=== PATIENT | male | born 1965 | race Two or more races ===

== ENCOUNTER 2020-02-21 09:31 | Outpatient (REF) | payer MEDICAID, SELFPAY ==
--- NOTE | 2020-02-21 09:30 | EMG_ITS ---
Bilateral tibial and peroneal motor studies were performed. Bilateral sural and superficial peroneal sensory studies were performed. Tibial H reflexes were obtained and paraspinal muscles were tested. IMPRESSION: This study did not reveal any significant abnormality to suggest radiculopathy or peripheral neuropathy. MD JAD Lancaster/AMADEO / [id number]
== END 2020-02-21 09:32 | disposition home or self-care (01) ==
LOC: HO.NEURO 09:31
PROVIDERS: Visit Provider Family Medicine
DX: M54.5 Low back pain (principal); M62.81 Muscle weakness (generalized)
CPT/HCPCS: 95860; 95861; 95911

== ENCOUNTER 2020-04-23 11:14 | Outpatient (REF) | payer MEDICAID, SELFPAY | END 2020-04-23 11:15 | disposition home or self-care (01) | LOC: HO.LAB 11:14 | PROVIDERS: PCP Family Medicine; Visit Provider Internal Medicine | DX: Z20.822 Contact with and (suspected) exposure to COVID-19 (principal) | CPT/HCPCS: 36415; C9803; U0003 ==

== ENCOUNTER 2020-07-05 13:26 | Emergency (ER) | payer OTHER, SELFPAY ==
[2020-07-05 13:31] VITALS: BP 142/78; PULSE 74
[2020-07-05 13:37] VITALS: BP 130/65; PULSE 86; RESP 17; TEMP 37.4; O2SAT 95; BMI 26.6
--- NOTE | 2020-07-05 13:47 | ED.GENADULT ---
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 He told me he was in the bathroom changing the trash and then felt a poking sensation on his finger. Tells me he saw the needle which was uncapped and he noticed his finger was bleeding. Related Data Allergies Allergy/AdvReac Type Severity Reaction Status Date / Time No Known Allergies Allergy Verified 07/05/20 13:40 Review of Systems Review of Systems: Yes all other systems are reviewed and are negative Constitutional: Constitutional: Reports no additional constitutional complaints, Denies body ache(s), Denies chills, Denies fever(s), Denies headache(s) and Denies weakness Eyes: Eyes: Reports no additional eye complaints and Denies change in vision ENT: Reports system reviewed and no additional complaints, except as documented, Denies dizziness, Denies headache(s), Denies nasal congestion, Denies nasal discharge and Denies neck pain Cardiovascular: Cardiovascular: Reports no additional cardiovascular complaints, Denies chest pain, Denies leg edema and Denies dyspnea Respiratory: Respiratory: Reports no additional respiratory complaints, Denies cough and Denies dyspnea Gastrointestinal: Gastrointestinal: Reports no additional gastrointestinal complaints, Denies abdominal pain, Denies diarrhea, Denies nausea and Denies vomiting Genitourinary: Genitourinary: Denies urinary incontinence Musculoskeletal: Musculoskeletal: Reports no additional musculoskeletal complaints, Denies back pain, Denies arthralgias, Denies joint swelling, Denies neck pain, Denies numbness and Denies tingling Integumentary/Breasts: Skin/Breast: Reports system reviewed and no additional complaints, except as docu and Denies rash Neurologic: Reports system reviewed and no additional complaints, except as documented, Denies Abnormal speech present, Denies dizziness, Denies headache(s), Denies numbness, Denies tingling and Denies weakness PMFSH Past Medical History Attestation statement: The following information was validated with the patient. Source: old records reviewed and nursing notes reviewed Medical History No known health problems Social History Social History Advance Directives: No Advance Directives Information Provided: Yes Physical Exam Vital Signs: Vital Signs: Last Vital Signs Temp 99.3 F 07/05/20 13:37 Pulse 86 07/05/20 13:37 Resp 17 07/05/20 13:37 BP 130/65 07/05/20 13:37 Pulse Ox 95 07/05/20 13:37 Body Mass Index 26.6 Const: General: cooperative, healthy appearing, comfortable and no acute distress Orientation/consciousness: patient oriented x3 Limitations: no limitations HENMT: Head: Yes normal to inspection Ears: hearing grossly normal bilaterally General nose exam: Normal external nose present Face and sinus: Yes normal facial exam Mouth: Normal oral and palatal mucosa present Throat: Yes posterior oropharynx normal Eyes: General: appearance normal, both eyes and all related structures Pupils: Equal, round and reactive pupils present Neck: Neck: Yes normal visual inspection Chest: Chest palpation & inspection: normal inspection of the chest Resp: Effort & Inspection: normal respiratory effort Auscultation: clear to auscultation bilaterally Cardio: Rate: regular rate Rhythm: regular rhythm Peripheral pulses: Peripheral pulses 2+ throughout GI: Inspection: Yes normal to inspection Palpation (GI): Soft to palpation and nontender Auscultation: normal bowel sounds Back/Spine/Pelvis: Thoracic/Lumbar Spine: thoracic and lumbar spine normal to inspection Skin: General skin exam: no rashes or lesions noted Neuro: General: patient oriented x3, no focal motor deficits and normal sensation to monofilament Cranial nerves: Yes Equal, round and reactive pupils present Cognition (Neuro): normal cognition Speech: No Abnormal speech present Gait exam (Neuro): Normal gait present Motor exam (neuro): 5/5 motor strength present throughout Extrem: Other: Right hand, distal 4th finger on the volar aspect there is a puncture site noted with no active bleeding. General: Yes normal to inspection Course Course Course Narrative: Accidental needlestick to the 4th finger on the right hand just prior to arrival while working. Will need labs including hepatitis and HIV status. Tetanus updated. 1415-unfortunately the patient is unaware of his hepatitis-B status. He is also unaware of his tetanus status. He received his 2nd COVID vaccine 1 week ago and per pharmacy he is unable to receive a secondary vaccination for another 7 days. He will be referred to [facility] to follow-up on Tuesday. I did explain to him that he can receive his vaccinations after 7 days and he will follow-up in regard to this with [facility]. 1510-Patient given PEP kit for 72 hrs. Reviewed worrisome signs and symptoms of when to return to the emergency department. Comfortable discharge home. Medical Decision Making Medical Records Medical records reviewed: Yes I reviewed the patient's medical records. Lab Data Lab results reviewed: Yes I reviewed the patient's lab results. Result diagrams: 07/05/20 13:58 07/05/20 13:58 Labs: Lab Results 07/05/20 07/05/20 Range/Units 13:58 13:58 WBC 6.7 (4.8-10.8) X10*3/uL RBC 5.08 (4.60-5.80) X10*6/uL Hgb 14.7 (14.0-18.0) g/dl Hct 44.3 (42-52) % MCV 87.2 (80-98) fL MCH 28.9 (27.0-33.0) pg MCHC 33.2 (31.0-36.0) g/dl RDW 13.2 (11.0-16.0) % Plt Count 171 (160-400) X10*3/uL MPV 9.6 (9.4-12.4) fL Immature Gran % (Auto) 0.1 (0.0-0.4) % Neut % (Auto) 81.5 H (45-73) % Lymph % (Auto) 8.5 L (20-40) % Sanders % (Auto) 8.5 (2-11) % Eos % (Auto) 0.7 (0-4) % Baso % (Auto) 0.7 (0-2) % Lymph # (Auto) 0.6 L (1.2-4.9) X10*3/uL Sanders # (Auto) 0.6 (0.1-1.2) X10*3/uL Eos # (Auto) 0.1 (0.0-0.4) X10*3/uL Baso # (Auto) 0.1 (0.0-0.2) X10*3/uL Abs Immat Gran (auto) 0.01 (0.00-0.03) X10*3/uL Absolute Neuts (auto) 5.5 (2.0-8.3) X10*3/uL Absolute Nucleated RBC 0.000 (0.0-0.012) X10*3/uL Nucleated RBC % (auto) 0.0 (0.0-0.2) /100WBC Smear Tech's Comments VERIFIED Sodium 135 (135-145) mmol/L Potassium 3.7 (3.3-5.1) mmol/L Chloride 102 (96-108) mmol/L Carbon Dioxide 25 (22-29) mmol/L Anion Gap 12 (12-20) BUN 23 H (9-16) mg/dL Creatinine 1.33 (0.5-1.4) mg/dL Estim Creat Clear Calc 55.9 Estimated GFR 56 Random Glucose 132 H (60-115) mg/dL Calcium 8.4 (8.4-10.2) mg/dL Total Bilirubin 1.2 H (0.0-1.0) mg/dL Direct Bilirubin 0.4 (0.0-0.5) mg/dL AST 23 (5-37) U/L ALT 22 (0-40) U/L Alkaline Phosphatase 71 (39-117) U/L Total Protein 7.0 (6.5-8.0) g/dL Albumin 4.1 (3.5-5.0) g/dL Discharge Plan Discharge Clinical Impression: Accidental hypodermic needlestick injury Patient Disposition: Home, Self-Care Instructions: Postexposure Prophylaxis (ED) Additional Instructions: We have given you 3 day supply of your post exposure medications. You will need to take these for 30 days and so on Tuesday you need to call [facility] for follow-up appointment. Their number is [phone]. Call them on Tuesday. You received a COVID vaccine 7 days ago. According to our pharmacy cannot receive another vaccine for 7 more days. We would like to give you a tetanus vaccine and or a hepatitis-B vaccine. Discussed this with [facility] next week. Take the medications as prescribed in the kit until Tuesday Referrals: Marlys Minor DO [Primary Care Provider] - 2 days Interventions: ED Discharge Assessment Last Done: 07/05/20 15:09 Discharge Date/Time: 07/05/20 15:10 Print Language: Lithuanian
[2020-07-05 14:10] LABS: Basophils Absolute Auto 0.1 X10*3/uL (0.0-0.2); Basophils Percent Auto 0.7 % (0-2); Eosinophils Absolute Auto 0.1 X10*3/uL (0.0-0.4); Eosinophils Percent Auto 0.7 % (0-4); Hematocrit 44.3 % (42-52); Hemoglobin 14.7 g/dl (14.0-18.0); Imm Gran Abs Auto 0.01 X10*3/uL (0.00-0.03); Imm Gran Pct Auto 0.1 % (0.0-0.4); Lymphocytes Absolute Auto 0.6 X10*3/uL (1.2-4.9); Lymphocytes Percent Auto 8.5 % (20-40); MANUAL DIFF FLAG SCAN; Mean Corpuscular HGB Conc 33.2 g/dl (31.0-36.0); Mean Corpuscular Hemoglobin 28.9 pg (27.0-33.0); Mean Corpuscular Volume 87.2 fL (80-98); Mean Platelet Volume 9.6 fL (9.4-12.4); Monocytes Absolute Auto 0.6 X10*3/uL (0.1-1.2); Monocytes Percent Auto 8.5 % (2-11); Neutrophils Absolute Auto 5.5 X10*3/uL (2.0-8.3); Neutrophils Percent Auto 81.5 % (45-73); Platelet Count 171 X10*3/uL (160-400); Red Blood Count 5.08 X10*6/uL (4.60-5.80); Red Cell Distribution Width 13.2 % (11.0-16.0); SCAN SMEAR FLAG 1; White Blood Count 6.7 X10*3/uL (4.8-10.8)
[2020-07-05 14:34] LABS: SLIDE REVIEW VERIFIED
[2020-07-05 14:40] LABS: Alanine Aminotransferase 22 U/L (0-40); Albumin Level 4.1 g/dL (3.5-5.0); Alkaline Phosphatase 71 U/L (39-117); Anion Gap 12 (12-20); Aspartate Amino Transferase 23 U/L (5-37); Bilirubin Direct 0.4 mg/dL (0.0-0.5); Bilirubin Total 1.2 mg/dL (0.0-1.0); Blood Urea Nitrogen 23 mg/dL (9-16); Calcium 8.4 mg/dL (8.4-10.2); Carbon Dioxide 25 mmol/L (22-29); Chloride 102 mmol/L (96-108); Creatinine Clr Calc Pharmacy 55.9; Estimated Glomerular Filt Rate 56; Glucose Random 132 mg/dL (60-115); Potassium 3.7 mmol/L (3.3-5.1); Sodium 135 mmol/L (135-145)
[2020-07-05] MEDS: Post Exposure Medication Kit 1 KIT PO (15:00)
[2020-07-07 03:50] LABS: HBc Num1 0.06 S/CO (0.00-0.79); Hepatitis B Core Antibody Nonreactive (Nonreactive); ~HepC Num1 0.07 S/CO (0.00-0.79); ~Hepatitis B Surface Antibody NONREACTIVE (Nonreactive); ~Hepatitis C Antibody Nonreactive (Nonreactive)
[2020-07-07 04:01] LABS: HBsAGNum1 0.17 S/CO (0.00-0.99); HIV AB/AG Nonreactive (Nonreactive); HIV Num 1 0.08 S/CO (0.00-0.99); Hepatitis B Surface Antigen Negative (Negative)
== END 2020-07-05 15:10 | disposition home or self-care (01) ==
PROVIDERS: Nurse Practitioner Family; Emergency Provider Emergency Medicine; PCP Family Medicine
DX: Z04.2 Encounter for examination and observation following work accident (principal); Z77.21 Contact with and (suspected) exposure to potentially hazardous body fluids
CPT/HCPCS: 36415; 80048; 80076; 85025; 86704; 86706; 86803; 87340; 87389; 90471; 99283; 99285

== ENCOUNTER → 2020-07-11 11:10 | Outpatient (BNVA) | payer OTHER, SELFPAY | PROVIDERS: PCP Family Medicine; Visit Provider Physician Assistant Medical | DX: Z77.21 Contact with and (suspected) exposure to potentially hazardous body fluids (principal) | CPT/HCPCS: 90715; 90746; 99203 ==

== ENCOUNTER → 2020-07-18 10:26 | Outpatient (BNVA) | payer OTHER, SELFPAY | PROVIDERS: PCP Family Medicine; Visit Provider Physician Assistant Medical | DX: Z77.21 Contact with and (suspected) exposure to potentially hazardous body fluids (principal) | CPT/HCPCS: 36415; 80076; 82150; 82565; 85025; 99213 ==

== ENCOUNTER → 2020-08-01 09:19 | Outpatient (BNVA) | payer OTHER, SELFPAY | PROVIDERS: PCP Family Medicine; Visit Provider Physician Assistant Medical | DX: Z77.21 Contact with and (suspected) exposure to potentially hazardous body fluids (principal) | CPT/HCPCS: 36415; 80076; 82150; 82565; 85025; 99213 ==

== ENCOUNTER 2020-08-12 08:03 | Outpatient (REF) | payer MEDICAID, SELFPAY ==
--- NOTE | ~2020-08-12 | XR_ITS ---
EXAMINATION: XR LUMBOSACRAL SPINE CLINICAL INFORMATION: Spondylosis with myelopathy. COMPARISON: None TECHNIQUE: Three views of the lumbosacral spine. FINDINGS: There is normal lumbar lordosis. The vertebral heights and alignment is normal. There is loss of L5-S1 disc height with posterior and ventral spondylosis. Rest of the disc heights are normal. There is no visible acute fracture, dislocation or lytic process seen. The paravertebral soft tissues are normal. XR/XR lumbar spine 2-3V IMPRESSION: Degenerative disc changes L5-S1 disc level with ventral and posterior spondylosis. No visible acute fracture or dislocation seen.
== END 2020-08-12 08:04 | disposition home or self-care (01) ==
LOC: HO.XRAY 08:03
PROVIDERS: PCP Family Medicine; Visit Provider Nurse Practitioner Family
DX: M47.816 Spondylosis without myelopathy or radiculopathy, lumbar region (principal)
CPT/HCPCS: 72100; 99202

== ENCOUNTER → 2020-08-20 08:08 | Outpatient (BNVA) | payer OTHER, SELFPAY | PROVIDERS: PCP Family Medicine | DX: Z77.21 Contact with and (suspected) exposure to potentially hazardous body fluids (principal) | CPT/HCPCS: 36415; 80051; 80076; 82565; 84520; 87389; 90746; 99211 ==

== ENCOUNTER → 2020-08-27 08:12 | Outpatient (BNVA) | payer OTHER, SELFPAY | PROVIDERS: PCP Family Medicine; Visit Provider Nurse Practitioner Family | DX: M47.816 Spondylosis without myelopathy or radiculopathy, lumbar region (principal); R29.898 Other symptoms and signs involving the musculoskeletal system | CPT/HCPCS: 99212 ==

== ENCOUNTER → 2020-10-16 10:53 | Outpatient (BNVA) | payer OTHER, SELFPAY | PROVIDERS: PCP Family Medicine | DX: Z77.21 Contact with and (suspected) exposure to potentially hazardous body fluids (principal) | CPT/HCPCS: 36415; 82247; 84450; 84460; 86803; 87389; 99211 ==

== ENCOUNTER → 2021-02-04 10:02 | Outpatient (BNVA) | payer OTHER, SELFPAY | PROVIDERS: PCP Family Medicine | DX: Z77.21 Contact with and (suspected) exposure to potentially hazardous body fluids (principal) | CPT/HCPCS: 36415; 84450; 84460; 86803; 87389; 90746; 99211 ==

== ENCOUNTER 2021-02-11 13:42 | Outpatient (REF) | payer MEDICAID, SELFPAY ==
--- NOTE | ~2021-02-11 | XR_ITS ---
EXAMINATION: XR HIP, LEFT CLINICAL INFORMATION: Left hip pain. COMPARISON: None TECHNIQUE: Two views of the left hip. FINDINGS: The bony alignments are intact. The cortices are intact. Articular margins, joint space appear unremarkable. Small sub-5 mm radiodensity seen overlying the superolateral aspect of the acetabulum. Otherwise the soft tissues are unremarkable. XR/XR hip LT min 2V IMPRESSION: No radiographic evidence of any osseous or articular abnormality. Note is made of presence of a sub-5 mm radiodensity overlying the superolateral aspect of the acetabulum, may represent labral/ paralabral calcification.
== END 2021-02-11 13:43 | disposition home or self-care (01) ==
LOC: HO.XRAY 13:42
PROVIDERS: PCP Family Medicine; Visit Provider Nurse Practitioner Family
DX: M25.552 Pain in left hip (principal); M47.816 Spondylosis without myelopathy or radiculopathy, lumbar region; M53.3 Sacrococcygeal disorders, not elsewhere classified
CPT/HCPCS: 73502; 99212

== ENCOUNTER → 2021-03-25 07:52 | Outpatient (BNVA) | payer OTHER, SELFPAY | PROVIDERS: PCP Family Medicine | DX: Z77.21 Contact with and (suspected) exposure to potentially hazardous body fluids (principal); Z23 Encounter for immunization | CPT/HCPCS: 36415; 86706; 99211 ==

== ENCOUNTER → 2021-04-16 12:12 | Outpatient (BNVA) | payer OTHER, SELFPAY | PROVIDERS: PCP Family Medicine | DX: Z77.21 Contact with and (suspected) exposure to potentially hazardous body fluids (principal); Z23 Encounter for immunization ==

== ENCOUNTER 2021-05-27 14:00 | Outpatient (RCR) | payer MEDICAID, SELFPAY | END 2021-06-15 16:09 | disposition home or self-care (01) | LOC: HO.PT 14:00 | PROVIDERS: PCP Family Medicine; Visit Provider Family Medicine | DX: M54.50 Low back pain, unspecified (principal) | CPT/HCPCS: 97110; 97140; 97162 ==

== ENCOUNTER → 2021-06-16 07:43 | Outpatient (BNVA) | payer OTHER, SELFPAY | PROVIDERS: PCP Family Medicine | DX: Z77.21 Contact with and (suspected) exposure to potentially hazardous body fluids (principal) | CPT/HCPCS: 36415; 86706; 99211 ==

== ENCOUNTER 2023-01-12 07:33 | Emergency (ER) | payer OTHER, SELFPAY ==
[2023-01-12 07:42] VITALS: BP 124/65; PULSE 67; RESP 16; TEMP 36.3; O2SAT 96; BMI 27.1
--- NOTE | 2023-01-12 07:46 | ED.WOUNDLAC ---
HPI - Wound/Laceration General Chief Complaint: Wound/Laceration Stated Complaint: Head Lac Work Injury 01/12/23 Time Seen by Provider: 01/12/23 07:43 History of Present Illness HPI narrative: Patient is a 57-year-old male works at [employer] Patient hit his head against a metal rail. Subsequently complaining of pain localized to the area. There is no loss of consciousness. There is no nausea no vomiting. Worry about a laceration to the area. Patient from work. Not on blood thinners. Related Data Allergies Allergy/AdvReac Type Severity Reaction Status Date / Time No Known Allergies Allergy Verified 02/11/21 13:51 Review of Systems Review of Systems: No nausea no vomiting no chest pain no shortness breath no diaphoresis Yes all other systems are reviewed and are negative [facility] Past Medical History Attestation statement: The following information was validated with the patient. Medical History No known health problems Social History Social History Advance Directives: No Physical Exam Vital Signs: Vital Signs: Last Vital Signs Temp 97.3 F 01/12/23 07:42 Pulse 67 01/12/23 07:42 Resp 16 01/12/23 07:42 BP 124/65 01/12/23 07:42 Pulse Ox 96 01/12/23 07:42 O2 Del Method Room Air 01/12/23 07:42 BMI result Body Mass Index 27.1 Appearance: Alert. Oriented X3. No acute distress. Very small superficial laceration noted over the occipital area approximately 0.5 cm in size well apposed. Eyes: Pupils equal, round and reactive to light. ENT: Pharynx normal. There is no midface tenderness there is no Warner sign there is no malocclusion noted Neck: Normal inspection. Neck supple. No lymph nodes noted. No crepitus. There is no C-spine tenderness elicited on palpation. CVS: Normal heart rate and rhythm. Pulses normal. Normal S1 and S2 Respiratory: No respiratory distress. Breath sounds normal. No Wheezing. No rales Abdomen: Soft and nontender. No rigidity. No distention. good BS x4 Skin: Skin warm and dry. Normal skin color. Normal skin turgor. Extremities: No lower extremity edema. Neurovascular intact to all extremities. No Lacerations. No Rash Neuro: Oriented X 3. No motor deficit. No sensory deficit. Moving all extermities. No slurred speech Medical Decision Making Medical Decision Making MDM Narrative: Well-appearing there is no loss of consciousness. No nausea no vomiting. No focal weakness. The laceration is well apposed is less than 1 cm in size the wound will be cleaned. Patient to be discharged home. Reeders that this time patient does not need a CT scan of the head. His tetanus shot is up-to-date. Differential Diagnosis Head injury intracranial bleed External Record Review Outpatient office record reviewed Discharge Plan Discharge Clinical Impression: Head injury Patient Disposition: Home, Self-Care Instructions: Head Injury (ED) Referrals: Marlys Minor DO [Primary Care Provider] - 01/14/23 Print Language: Turkmen
== END 2023-01-12 08:13 | disposition home or self-care (01) ==
PROVIDERS: Emergency Provider Emergency Medicine Emergency Medical Services; PCP Family Medicine
DX: S01.01XA Laceration without foreign body of scalp, initial encounter (principal); W26.9XXA Contact with unspecified sharp object(s), initial encounter; Y93.9 Activity, unspecified; Y92.9 Unspecified place or not applicable; Y99.0 Civilian activity done for income or pay
CPT/HCPCS: 99282

== ENCOUNTER 2024-01-24 10:21 | Outpatient (REF) | payer OTHER, SELFPAY ==
[2024-01-24 11:11] LABS: MANUAL DIFF FLAG NO
[2024-01-24 11:39] LABS: Basophils Absolute Auto 0.1 X10*3/uL (0.0-0.2); Basophils Percent Auto 1.2 % (0-2); Eosinophils Absolute Auto 0.4 X10*3/uL (0.0-0.4); Eosinophils Percent Auto 7.1 % (0-4); Hematocrit 49.1 % (42.0-52.0); Hemoglobin 16.1 g/dl (14.0-18.0); Imm Gran Abs Auto 0.01 X10*3/uL (0.00-0.03); Imm Gran Pct Auto 0.2 % (0.0-0.4); Lymphocytes Absolute Auto 1.3 X10*3/uL (1.2-4.9); Lymphocytes Percent Auto 25.9 % (20-40); Mean Corpuscular HGB Conc 32.8 g/dl (31.0-36.0); Mean Corpuscular Hemoglobin 28.8 pg (27.0-33.0); Mean Corpuscular Volume 87.7 fL (80.0-98.0); Mean Platelet Volume 9.7 fL (9.4-12.4); Monocytes Absolute Auto 0.4 X10*3/uL (0.1-1.2); Monocytes Percent Auto 8.1 % (2-11); Neutrophils Absolute Auto 2.9 x10*3/uL (2.0-8.3); Neutrophils Percent Auto 57.5 % (45-73); Platelet Count 211 X10*3/uL (160-400); Red Cell Distribution Width 13.7 % (11.0-16.0); White Blood Count 5.1 X10*3/uL (4.8-10.8)
[2024-01-24 12:02] LABS: Estimated Average Glucose 126 mg/dL; Hemoglobin A1C 161.5323 umol/L; Total Hemoglobin (HGBA1C) 3858.5303 umol/L
[2024-01-24 12:37] LABS: Alanine Aminotransferase 22 U/L (0-40); Albumin Level 4.2 g/dL (3.5-5.0); Alkaline Phosphatase 64 U/L (39-117); Anion Gap 9 (12-20); Aspartate Amino Transferase 24 U/L (5-37); Blood Urea Nitrogen 20 mg/dL (9-16); Calcium 9.6 mg/dL (8.4-10.2); Carbon Dioxide 28 mmol/L (22-29); Chloride 108 mmol/L (96-108); Cholesterol 208 mg/dL (<200); Estimated Glomerular Filt Rate 57; Glucose Random 98 mg/dL (60-115); HDL Cholesterol 45 mg/dL (>40); LDL Cholesterol Calculated 128 mg/dL (<100); Potassium 4.2 mmol/L (3.3-5.1); Sodium 141 mmol/L (135-145); Total Protein 7.1 g/dL (6.5-8.0); Triglycerides 179 mg/dL (<150)
[2024-01-24 12:43] LABS: TSH reflex Free T4 1.45 uIU/mL (0.32-4.0)
[2024-01-24 12:58] LABS: Vitamin B12 494 pg/mL (200-900)
[2024-01-24 13:07] LABS: Reflex LDLD? No
[2024-01-24 13:29] LABS: Folate 11.1 ng/mL (> or = 4.0)
== END 2024-01-24 10:22 | disposition home or self-care (01) ==
LOC: HO.HHCL 10:21
PROVIDERS: Visit Provider Family Medicine
DX: R73.03 Prediabetes (principal); R03.0 Elevated blood-pressure reading, without diagnosis of hypertension; R20.0 Anesthesia of skin; E78.5 Hyperlipidemia, unspecified
CPT/HCPCS: 36415; 80053; 80061; 82607; 82746; 83036; 84443; 85025

== ENCOUNTER 2024-02-14 09:06 | Outpatient (REF) | payer BC, SELFPAY ==
--- NOTE | 2024-02-14 09:09 | EMG_ITS ---
Bilateral median and ulnar motor and sensory studies were performed. Bilateral radial sensory and median and lateral antecubital brachial sensory studies were performed and paraspinal muscles were tested with a needle. IMPRESSION: 1. 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 2. 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 MD JAD Lancaster/AMADEO / [id number]
== END 2024-02-14 09:07 | disposition home or self-care (01) ==
LOC: HO.NEURO 09:06
PROVIDERS: PCP Family Medicine; Visit Provider Family Medicine
DX: R20.0 Anesthesia of skin (principal)
CPT/HCPCS: 95886; 95913

== ENCOUNTER 2024-02-20 10:26 | Outpatient (AMB) | payer BC, SELFPAY ==
--- NOTE | 2024-02-20 10:42 | MHC.OFFVIS ---
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 EMG was done on 02/14/2024. Patient reports his main complaints is when he is sleeping at night he feels both palms go numb and tingling radiates through his 2nd, 3rd, 4th and 5th digits of his bilateral hands. He expresses he does not have difficulty with gripping, grasping, and lifting. He also denies dropping objects. He says he does not feel his symptoms throughout the day, mainly just at night. 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 EMG was done on 02/14/2024. Patient states that his symptoms are intermittent, daily, and worse at night. Patient reports his main complaints is when he is sleeping at night he feels both palms go numb and tingling radiates through his 2nd, 3rd, 4th and 5th digits of his bilateral hands. He expresses he does not have difficulty with gripping, grasping, and lifting. He also denies dropping objects. He says he does not feel his symptoms throughout the day, mainly just at night. 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 Good APB muscle firing and good finger cross. Vascular: Capillary refill brisk. ROM: Patient can make a fist and extend all their digits. Skin: No lacerations or abrasions noted. General: No ecchymosis. No erythema or evidence of infection. Results Reviewed Results Reviewed: IMPRESSION: 1. 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 2. 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 MD JAD Lancaster/AMADEO Assessment & Plan Assessment & Plan (1) Bilateral carpal tunnel syndrome: Code(s): G56.03 - Carpal tunnel syndrome, bilateral upper limbs Category: Medical Plan 1. Bilateral carpal tunnel syndrome Symptoms intermittent, daily, worse at night Patient was educated about this condition and the treatment options available, namely surgery However, the patient states he is not comfortable signing up for surgery today, and would like some time to think about his decision Patient is advised that he should not wait too long, as if he waits until the point he is numb all the time, there is increased risk of not getting normal sensation back even with surgery Patient states understanding of this, and states that he would like to come back in 6-8 weeks for repeat evaluation and discussion of surgery Patient will follow-up in 6-8 weeks for discussion of carpal tunnel release, sooner with any acute concerns Coding Level of Care Code New Pt Level 3 (49791) Diagnoses Bilateral carpal tunnel syndrome G56.03
== END 2024-02-20 11:11 | disposition home or self-care (01) ==
PROVIDERS: PCP Family Medicine
DX: G56.03 Carpal tunnel syndrome, bilateral upper limbs (principal)
CPT/HCPCS: 99203

== ENCOUNTER 2024-04-30 15:06 | Outpatient (AMB) | payer BC, SELFPAY ==
--- NOTE | 2024-04-30 15:13 | A.OFFVIS_ITS ---
Vital Signs 04/30/24 15:20 Height 5 ft 6 in Weight 173 lb 8 oz BMI 28.0 Intake Visit Reasons: colonoscopy recall Intake Note: This patient presents for recall colonoscopy screening. Pt c/o; last colonoscopy Dr. Howell 2012, no concerns. Software Project Manager Required: Yes Software Project Manager Language: Anaesthesiologist Services: Software Project Manager Present Software Project Manager Name: Marline Information Interpreted: non-clinical & clinical Accompanied by: Spouse Allergies No Known Allergies Allergy (Verified 04/30/24 15:20) Medication List - Last Reconciled 04/30/24 by Drew Howell MD acetaminophen 650 mg PO QID PRN atorvastatin 20 mg PO DAILY cholecalciferol (vitamin D3) 50 mcg PO DAILY cyclobenzaprine 10 mg PO TID lidocaine 5% 1 patch topical DAILY naproxen 500 mg PO BID olmesartan 5 mg PO DAILY omeprazole 20 mg PO DAILY HPI HPI colonoscopy recall: Details: 58-year-old male referred for follow-up screening colonoscopy. His last colonoscopy was apparently in 2012. He says this was unremarkable He denies any GI complaints. He denies a family history of colon cancer. He does state that he had a stroke about 2 years ago. He said that he had some I had sent weakness of his right leg at that time. 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 Review of Systems Const Denies chills and Denies fever(s) Card Denies chest pain, Denies dyspnea and Denies dyspnea on exertion Resp Denies cough, Denies dyspnea and Denies dyspnea on exertion GI Denies hematochezia and Denies change in bowel habits Denies hematuria and Denies difficulty urinating Musc Denies back pain and Denies limited range of motion Neuro Denies focal weakness and Denies convulsions Psych Denies depression and Denies mood swings Physical Exam Vital Signs: BMI result Body Mass Index 28.0 Const General: comfortable and no acute distress Orientation/consciousness: patient oriented x3 Neck Neck: Yes no lymphadenopathy Resp Auscultation: clear to auscultation bilaterally Cardio Rhythm: regular rhythm GI Palpation (GI): Soft to palpation, nontender and no guarding Neuro General: patient oriented x3 Assessment & Plan Assessment & Plan (1) Colon cancer screening: Code(s): Z12.11 - Encounter for screening for malignant neoplasm of colon Category: Medical Plan: I explained to him the technique of colonoscopy for screening. I reviewed the risks including but not limited to bleeding and perforation, as well as the benefits and alternatives. He understands and wants to proceed. Coding Level of Care Code New Pt Level 3 (43285) Diagnoses Colon cancer screening Z12.11
[2024-04-30 15:20] VITALS: BMI 28.0
--- OUTSIDE RECORDS SUMMARY | 2024-04-30 19:18 | XMS_ITS | Encounter Summary ---
Author Organization [employer] Address [address] [place] [address] Care Team Providers Care Gasser Machine Operator Name Role Phone Sandra Henson MD Primary Care Provider [phone] Encounter Details Date Type Department Care Team ([facility] st Contact Info) Description 02/28/2024 Orders Only [facility] [address] [place] [address] Sandra Henson MD [address] [place] [address] Social History Tobacco Use Types Packs/Day Years Used Date Smoking Tobacco: Former Cigarettes Smokeless Tobacco: Never Alcohol Use Standard Drinks/Week Comments Not Currently 0 (1 standard drink = 0.6 oz pur e alcohol) Alcohol Answer Date Recorded Frequency of Alcohol Consumption Not on file 01/23/2024 Average Number of Drinks Not on file 024 Frequency of Binge Drinking Not on file 01/03 Score 0 01/23/2024 Depression Answer Date Recorded Patient Health Questionnaire-9 Score 0 01/23/2024 Patient Health Questionnaire-9 Score 0 01/23/2024 Last PHQ-9: Questionnaire Data Not on file 1 Housing Stability Answer Date Recorded What is your housing situation today? I have monica poon 01/21/[address] you li ve. Do you have problems with any of the following? None of the above 01/21/2023 Food Insecurity Answer Date Recorded Within the past 12 months, y ou worried that your food would run out before you got money to buy more: Never True 01/21/2023 Within the past 12 months,th e food you bought just didn't last and you didn't have enough money to get more: Never True Transportation Answer Date Recorded In the past 12 months, has l ack of transportation kept you from medical appts, meetings, work or from getting things needed for daily living? No 01/21/2023 Utilities Answer Date Recorded In the past 12 months, has t he electric, gas, oil or water company threatened to shut off services in your home? No 01/21/2023 Depression Answer Date Recorded Patient Health Questionnaire-2 Score 0 01/23/2024 Internet Access Answer Date Recorded Internet Access Q1 Yes 01/11/2024 Internet Access Q2 Not on file 01/11/2024 Sex and Gender Information Value Date Recorded Sex Assigned at Male 02/01/2022 10:16 AM EDT Legal Sex Male 10:16 AM EDT Gender Identity Male 02/01/2022 10:16 AM EDT Sexual Orientation Straight 02/01/2022 10 :16 AM EDT documented as of this encounter Plan of Treatment Upcoming Encounters Date Type Department Care Team (Late st Contact Info) Description 05/08/2024 3:30 PM EST Office Visit [facility] [address] [place] [id number] Sandra Henson MD [address] [place] [phone] documented as of this encounter Visit Diagnoses Not on filedocumented in this encounter Additional Health Concerns Assessment Noted Time PHQ-9 Depression Total Score: 0 01/23/20 2:50 PM EDT documented as of this encounter Care Teams Gasser Machine Operator Relationship Specialty Start Date End Date Sandra Henson MD [address] [place] [address] [phone] PCP - General Family Medicine 01/23/24 documented as of this encounter
--- OUTSIDE RECORDS SUMMARY | 2024-04-30 19:18 | XMS_ITS | Encounter Summary ---
Author Organization [employer] Address [address] [place] [address] Care Team Providers Care Nipple Machine Operator Name Role Phone Mily Marlys Primary Care Provider + [phone] Sandra Henson MD Primary Care Provider [phone] Encounter Details Date Type Department Care Team (Late st Contact Info) Description 07/14/2023 Orders Only [facility] [address] [place] [address] Provider, MD Lou Social History Tobacco Use Types Packs/Day Years Used Date Smoking Tobacco: Former Cigarettes Smokeless Tobacco: Never Alcohol Use Standard Drinks/Week Comments Not Currently 0 (1 standard drink = 0.6 oz pur e alcohol) Depression Answer Date Recorded Patient Health Questionnaire-9 Score 22 03/31/2023 Patient Health Questionnaire-9 Score 22 03/31/2023 Last PHQ-9: Questionnaire Data Not on file 1 06/01/2022 Housing Stability Answer Date Recorded What is [...] Answer Date Recorded Patient Health Questionnaire-2 Score 6 03/31/2023 Sex and Gender Information Value Date Recorded Sex Assigned at Male 02/01/2022 10:16 AM EDT Legal Sex Male 10:16 AM EDT Gender Identity Male 02/01/2022 10:16 AM EDT Sexual Orientation Straight 02/01/2022 10 :16 AM EDT documented as of this encounter Plan of Treatment Upcoming Encounters Date Type Department Care Team (Late st Contact Info) Description 05/08/2024 3:30 PM EST Office Visit [facility] [address] [place] [address] [phone] Sandra Henson MD [address] [place] [phone] documented as of this encounter Procedures Procedure Name Priority Date/Time Associated Diagnosis Comments COLONOSCOPY Routine 01/03/2013 10:43 AM EDT documented in this encounter Results * Hm Colonoscopy (01/03/2013 10:43 AM EDT) Historical Provider HEALTH MAINTENANCE Final Result documented in this encounter Visit Diagnoses Not on filedocumented in this encounter Additional Health Concerns Assessment Noted Time PHQ-9 Depression Total Score: 22 023 8:21 AM EST documented as of this encounter Care Teams Nipple Machine Operator Relationship Specialty Start Date End Date Marlys Minor DO [address] [place] [address] [phone] PCP - General Family Medicine 10/19/13 01/22/24 Sandra Henson MD [address] [place] [address] [phone] PCP - General Family Medicine 01/23/24 documented as of this encounter
--- OUTSIDE RECORDS SUMMARY | 2024-04-30 19:18 | XMS_ITS | Clinical Summary ---
Author Organization [employer] Address [address] [facility] [address] [place] [address] Care Team Providers Care Restaurant Front Manager Name Role Phone Sandra Henson MD Primary Care Provider [phone] Allergies No known active allergies Medications * This document contains information received from the source organization and may not represent a complete record from that organization. acetaminophen (Tylenol 8 Hour) 650 MG ER tablet Take 1 tablet by mouth in the morning and 1 tablet at noon and 1 tablet in the evening. 1 Active cholecalciferol (Vitamin D-3) 50 MCG (1999) capsule Take 1 tablet by mouth at bed time. 1 Active cyclobenzaprine (Flexeril) 10 MG tablet Take 1 tablet (10 mg) by mouth 3 times daily for 10 days. 30 tablet 3 Active lidocaine (Lidoderm) 5 % patch APPLY 1 PATCH TOPICALLY TO SKIN, LEAVE ON FOR 12 HOURS AND OFF FOR 12 HOURS DIRECTED 30 patch 5 4 Active omeprazole (PriLOSEC) [address] tessaIndicatihyacinth ns:Gastroesophag eal reflux disease, unspecified whether esophagitis present Take 1 capsule (20 mg) by mouth before breakfast. 30 capsule 11 4 Active Blood Pressure Monitor misc Check BP daily 1 each 4 Active naproxen (Naprosyn) 500 MG tablet Take 1 tablet (500 mg) by mouth if needed in the morning and at bedtime for mild pain. Take with food. Do not take everyday for > 2 weeks 30 tablet 1 4 Active olmesartan (Benicar) 5 MG tablet Take 1 tablet (5 mg) by mouth Once per day. 90 tablet 3 4 01/26/20 25 Active atorvastatin (Lipitor) 20 MG tablet Take 1 tablet (20 mg) by mouth Once per day. 90 tablet 3 4 Active Active Problems Problem Noted Date Diagnosed Date Elevated BP without diagnosis of hypertension Assessment & Plan (01/29/2024 3:41 PM EDT): -Goal BP < 140/90 per JNC-8 and < 130/80 per ACC/AHA guideline (Treatment threshold >=140/90) -Elevated BP today, possibly due to anxiety (GAD7 score 12) -Continue working on lifestyle modifications -Recommended self-monitoring BP. -ordered TSH, CMP and Albumin 01/23/24 -Return for BP check in 3 wks with our nurse. If home BP is mostly > 135/85, and/or office BP is > 140/90, will start low-dose ARB (olmesartan, valsartan, or losartan). Addendum Due to increased ASCVD risk, patient was started on atoravastatin and olmesartan. If BP is still not at goal, will increase olmesartan to 10 mg daily. Colon cancer screening 01/23/2024 Assessment & Plan (01/29/2024 3:30 PM EDT): - last colonoscopy by Dr. Howell in 2012, normal - refer back for colonoscopy Bilateral hand numbness 01/23/2024 Assessment & Plan (01/29/2024 3:46 PM EDT): Reports bilateral hand numbness that occurs mainly at night. Suspect likely carpel tunnel. - last NCT/EMG in 2019 was normal - will repeat test -prescribed Naproxen for PRN pain and also prescribed a brace to use at night. History of stroke 01/23/2024 Assessment & Plan (01/23/2024 9:30 PM EDT): Reports hx of stroke x2 years ago. -referral placed to Neurology 01/23/24 Moderate anxiety 03/31/2023 Assessment & Plan (01/29/2024 3:35 PM EDT): -GAD7 score 12 -patient declines medication -he is worried about his health, especially ?stroke Severe episode of recurrent major depressive disorder, with psychotic features 01/21/2023 01/21/2023 Assessment & Plan (01/29/2024 3:34 PM EDT): - evaluated by integrated behavioral health service in Mar 2023 - Adverse childhood event - PHQ9 score is 0, but GAD7 score is 12 - patient seems to be concerned about his health - continue stress reduction, maintain connection with family / friends / community Assessment & Plan (03/31/2023 10:19 AM EST): PROGRESS NOTE: ID: Tom is a 57 y.o. straight-identified cis-male with previous documented hx of Depression and Anxiety and hx of MH services including [facility] Psychotherapy psychopharmacology, He also has Hx of trauma in childhood. Tom presents for a BE after having a recent episode where he verbalized he was not himself. 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 Has support from younger daughter who moved to [place] and has other daughter within the area but he is closer to the youngest. ?? During IBH Consult Tom presenting??with??depressed mood, loss of interests/pleasure , changes in sleep difficulty falling asleep and restless, unsatisfying sleep, change in appetite or weight reduce appetite and unintentional weight loss , psychomotor retardation, trouble concentrating, fatigue/loss of energy and excessive worry/anxiety, difficulty controlling worry, restless/keyed up/On edge, easily fatigued, difficulty concentrating/Mind going blank , and sleep disturbance difficulty falling asleep and restless, unsatisfying sleep; for a period of 18+ mo, for all symptoms in the context of recent episodes where he gets out of the shower and look at himself and seem to look very skinny malnurished, and this give him a doom sensation where he wants to lay in bed and don't wake up.??He reported after episode he was not able to sleep and hasn't sleep in 48 hrs as in today and has not had any appetite. He denies hallucinations, SI/HI& self-harm at this time. PROGRESS NOTE: ID: Tom is a 57 y.o. straight-identified cis-male with previous documented hx of Depression and Anxiety and hx of MH services including OP Psychotherapy psychopharmacology, He also has Hx of trauma in childhood. Tom presents for a BE after having a recent episode where he verbalized he was not himself. 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 Has support from younger daughter who moved to [place] and has other daughter within the area but he is closer to the youngest. ?? During IBH Consult Tom presenting??with??depressed mood, loss of interests/pleasure , changes in sleep difficulty falling asleep and restless, unsatisfying sleep, change in appetite or weight reduce appetite and unintentional weight loss , psychomotor retardation, trouble concentrating, fatigue/loss of energy and excessive worry/anxiety, difficulty controlling worry, restless/keyed up/On edge, easily fatigued, difficulty concentrating/Mind going blank , and sleep disturbance difficulty falling asleep and restless, unsatisfying sleep; for a period of 18+ mo, for all symptoms in the context of recent episodes where he gets out of the shower and look at himself and seem to look very skinny malnurished, and this give him a doom sensation where he wants to lay in bed and don't wake up.??He reported after episode he was not able to sleep and hasn't sleep in 48 hrs as in today and has not had any appetite. He denies hallucinations, SI/HI& self-harm at this time. PLAN: New/Additional Services needed: Off-site services for Behavioral Health Integration Plan: External OP therapy referral and OP psychiatry Referral Patient Self Plan: Patient to utilize skills provided in intervention , Patient to reach out to [facility] team as needed, and Patient to reach out to [facility] as needed. Hyperlipidemia 01/21/2023 01/21/2023 Assessment & Plan (01/23/2024 9:32 PM EDT): Per records hx of hyperlipidemia. HDL 48, TOTCHOL 205. -ordered FLP 01/23/24 Mild cognitive impairment 01/21/20232022 Assessment & Plan (01/29/2024 3:35 PM EDT): Last previous PCP note as following: Likely MCI per neurology -TSH, RPR, B12, folate nml NOV 2017 -CT head unremarkable JAN 2018 -MMSE 28/ with neurology JAN 2018 -advised contact [facility] if sx worsen -f/u w/ neurology prn -Will refer back to neurology and clarify whether patient had a stroke or not Assessment & Plan (01/21/2023 11:52 AM EDT): Likely MCI per neurology -TSH, RPR, B12, folate nml NOV 2017 -CT head unremarkable JAN 2018 -MMSE 28/ with neurology JAN 2018 -advised contact [facility] if sx worsen -f/u w/ neurology prn Pre-diabetes 06/25/2015 01/21/2023 Assessment & Plan (01/23/2024 9:31 PM EDT): Strong FHx of diabetes. A1C per records on 06/24/21 was 5.9. -ordered A1C 01/23/24 Chronic gastroesophageal reflux disease 06/25/19 16 01/21/2023 Stage 3 chronic kidney disease 12/23/2010 1 Assessment & Plan (01/23/2024 9:27 PM EDT): Not on any medication, denies any medical hx. -ordered albumin to further evaluate. 01/23/24 Resolved Problems Problem Noted Date Diagnosed Date Resolved Date BMI 30.0-30.9,adult 01/21/2023 01/29/20 24 Onychomycosis 11/12/2021 01/21/2023 01/21/2023 Overweight (BMI 25.0-29.9) 06/25/2015 01/21/2023 1 Encounters Date Type Department Care Team Description 02/28/2024 Orders Only [address] [address] Sandra Henson MD 02/13/2024 11:00 AM EST Clinical Support [facility] MEDICINE [address] [place] [address] Tena Dover, MINH Elevated BP without diagnosis of hypertension 02/13/2024 Travel from Last 3 Months Immunizations Name Administration Dates Next Due Hep B, Adolescent or Pediatric 05/05/1996,1996 Hep B, adult 02/22/2022,,08/20/2020,2020,07/15/2009 Influenza injectable quadriv alent IIV4 with preservative 12/20/2014 Influenza injectable quadriv alent preservative free 02/22/2022,01/08/2021,01/17/2020,2019 Influenza, IIV3, injectable 01/28/2011 Influenza, Split (incl. jose fied surface antigen) 12/05/2012 Influenza, seasonal, injecta ble, preservative free 01/23/2024 Tdap 07/11/2020,11/16/2011 Family History Medical History Relation Name Comments Coronary artery disease Brother Depression Brother Stroke Brother pad Brother Cirrhosis Mother Diabetes type II Mother Hypertension Mother Relation Name Status Comments Brother Mother Social History Tobacco Use Types Packs/Day Years Used Date Smoking Tobacco: Former Cigarettes Smokeless Tobacco: Never Tobacco Cessation:Counseling Given: Not Answered Alcohol Use Standard Drinks/Week Comments Not Currently [...] Orientation Straight 02/01/2022 10 :16 AM EDT Last Filed Vital Signs Vital Sign Reading Time Taken Comments Blood Pressure 122/76 02/13/2024 10:58 AM EST Pulse 77 02/13/2024 10:58 AM EST Temperature 36.2 ??C (97.1 ??F) 01/23/2024 2:51 PM ED T Respiratory Rate 18 02/13/2024 10:58 AM EST Oxygen Saturation 98% 02/13/2024 10:58 AM EST Inhaled Oxygen Concentration - - Weight 81.3 kg (179 lb 3.2 oz) 01/23/2024 2:51 P M EDT Height 167.6 cm (5' 6 ) 03/29/2023 2:04 PM EST Body Mass Index 28.92 03/29/2023 2:04 PM EST Plan of Treatment Upcoming Encounters Date Type Department Care Team (Late st Contact Info) Description 05/08/2024 3:30 PM EST Office Visit [facility] MEDICINE [address] [place], [place] [phone] Sandra Henson MD [address] [place] [address] Health Maintenance Due Date Last Done Comments CT Colonography 1964 FIT DNA/Cologuard 1964 FIT 1964 FOBT 1964 Sigmoidoscopy 1964 Zoster Vaccines (1 of 2) 2014 Colonoscopy 01/03/2023 01/03/2013 Colorectal Cancer Screening 01/03/2023 COVID-19 Vaccine ( season) 2023 02/22/2022, 08/11/2021, 03/07/2021, Additional history exists SDOH Screening 01/10/2025 01/11/2024 Alcohol/Substance Use Screening 01/22/2025 01/23/2024 Depression Screening 01/22/2025 01/23/2024, 01/23/20 24 Diabetes: Hemoglobin A1C 01/23/2025 024, 06/24/2021, 04/11/2019 Tobacco Screening 01/28/2025 01/29/2024 Lipid Panel 01/23/2029 01/24/2024, 06/24/2021 DTaP/Tdap/Td Vaccines (3 - Td or Tdap) 07/11/2030 07/11/2020, 11/16/2011 RSV Patients and Patients Aged 60 years or older (1 - 1-dose 75+ series) 2039 HIV Screening Completed 06/24/2021, 06/2020, 04/11/2019 Hepatitis C Screening Completed 06/24/2021 , 07/05/2020, 04/11/2019 Hepatitis B Vaccines Completed 02/22/2022, 02/04/2021, 08/20/2020, Additional history exists Influenza Vaccine Completed 01/23/2024, , 01/08/2021, Additional history exists HIB Vaccines Aged Out No longer eligi ble based on patient's age to complete this topic HPV Vaccines Aged Out No longer eligi ble based on patient's age to complete this topic Hepatitis A Vaccines Aged Out No long er eligible based on patient's age to complete this topic IPV Vaccines Aged Out No longer eligi ble based on patient's age to complete this topic Meningococcal Vaccine Aged Out No precious natalya eligible based on patient's age to complete this topic Pneumococcal Vaccine: Pediatrics (0 to 5 Years) and At-Risk Patients (6 to 64 Years) Aged Out No longer eligible based on patient's age to complete this topic RSV under 20 months Aged Out No longe r eligible based on patient's age to complete this topic Rotavirus Vaccines Aged Out No longer eligible based on patient's age to complete this topic Procedures Procedure Name Priority Date/Time Associated Diagnosis Comments HEMOGLOBIN A1C Routine 01/24/2024 10:25 AM EDT Pre-diabetes LIPID PANEL WITH REFLEX TO DIRECT LDL Routine 01/24/2024 10:25 AM EDT Hyperlipidemia, unspecified hyperlipidemia type ZZZ HISTORICAL HEPATITIS C AB W/REFL TO HCV RNA, QN, PCR Routine 06/24/2021 8:50 AM EDT HIV 1/2 ANTIGEN/ANTIBODY, FOURTH GENERATION W/RFL Routine 06/24/2021 8:50 AM EDT HM COLONOSCOPY Routine 01/03/2013 10:43 AM EDT from Last 3 Months or Most Recently Relevant to Health Maintenance Results * (ABNORMAL) Lipid Panel with Reflex to Direct LDL (01/24/2024 10:25 AM EDT) Triglycerides 179(H) <150 mg/dL [facility] Comment:Desirable Triglyceri de: less than 150 mg/dLBorderline High Triglyceride 150-199 mg/dLHigh Triglyceride: 200-499 mg/dLVery High Triglyceride: greater than or equal to 5OO mg/dL Cholesterol 208(H) <200 mg/dL [facility] Comment:Desirable Cholestero l: less than 200 mg/dLBorderline High Cholesterol: 200-239 mg/dLHigh Cholesterol: greater than 239 mg/dL LDL Cholesterol Calculated 128(H) <100 mg/dL [facility] Comment:Desirable LDL: less than 100 mg/dLNear Optimal/Above Optimal LDL: 110- 129 mg/dLBorderline High LDL: 130-159 mg/dLHigh LDL: 160-189 mg/dLVery High LDL: greater than or equal to 190 mg/dL HDL Cholesterol 45 >40 mg/dL [facility] Comment:Desirable HDL: great er than 40 mg/dL Note: This HDL assay may give artificially low results in patients with liver disease. Blood 01/24/2024 10:2 5 AM EDT 01/24/2024 11:04 AM EDT Sandra Henson MD LAB BLOOD ORDERABLES Final Resul t Performing Organization Address [facility] de Phone Number [facility] [address] [place] [phone] * Hemoglobin A1c (01/24/2024 10:25 AM EDT) Hemoglobin A1c 6.0 <6.0 % [facility] Comment:Hemoglobin A1C Refer ence Range Adults: 4.8 - 6.0 % Non diabetic: < 6.0 % Goal: < 7.0 %Additional Action Suggested: > 8.0 %Note: Hemoglobin A1c results are invalid for patients with abnormal amounts of HbF. Blood transfusions may impact the HbA1c concentration in the patient sample. Estimated Average Glucose 126 mg/dL [facility] Comment:eAG = Estimated ave rage glucose which is %A1C expressed asaverage glucose, using the formula of the [id number]-[id number] Glucose study (ADAG), Diabetes Care, Vol.31,#8,Nov. 2007 Blood Venous blood specimen / Unknown 01/24/2024 10:25 AM EDT 01/24/2024 11:04 AM EDT Sandra Henson MD LAB BLOOD ORDERABLES Final Resul t Performing Organization Address [facility] Co de Phone Number [facility] [address] [place] [phone] * HEPATITIS C AB W/REFL TO HCV RNA, QN, PCR (06/24/2021 8:50 AM EDT) HEPATITIS C ANTIBODY NON-REACT OTIS NON-REACT OTIS [facility] INDEX 0.01 <1.00 [facility] Comment: ?? HCV antibody was non-reactive. There is no laboratory ?? evidence of HCV infection. ?? In most cases, no further action is required. However, if recent HCV exposure is suspected, a test for HCV RNA (test code 53513) is suggested. ?? For additional information please refer to http://[employer]Cause.[employer]Networks/faq/CTS46s2 (This link is being provided for informational/ educational purposes only.) ?? 06/24/2021 8:50 AM EDT Marlys Mily DO HISTORICAL/NON ORDERABLE LAB S Final Result Performing Organization Address [facility] Phone Number [facility] [address] [place] [address], * HIV 1/2 ANTIGEN/ANTIBODY,FOURTH GENERATION W/RFL (06/24/2021 8:50 AM EDT) [facility] HIV-1/2 ANTIGEN AND ANTIBODIES, 4TH GENERATION W/ REFLEX NON-REACT OTIS NON-REACT OTIS [facility] Comment: HIV-1 antigen and HIV-1/HIV-2 antibodies were not detected. There is no laboratory evidence of HIV infection. ?? PLEASE NOTE: This information has been disclosed to you from records whose confidentiality may be protected by state law. ??If your state requires such protection, then the state law prohibits you from making any further disclosure of the information without the specific written consent of the person to whom it pertains, or as otherwise permitted by law. A general authorization for the release of medical or other information is NOT sufficient for this purpose. ? For additional information please refer to http://[employer]Networks/faq/OHH828 (This link is being provided for informational/ educational purposes only.) ? The performance of this assay has not been clinically validated in patients less than 2 years old. ?? 06/24/2021 8:50 AM EDT Marlys Minor DO LAB BLOOD ORDERABLES Final R esult Performing Organization Address [facility] de Phone Number [facility] [address] [place] [address], * Hm Colonoscopy (01/03/2013 10:43 AM EDT) Historical Provider HEALTH MAINTENANCE Final Result from Last 3 Months or Most Recently Relevant to Health Maintenance Insurance [employer] Care Teams Restaurant Front Manager Relationship Specialty Start Date End Date Sandra Henson MD [address] [place] [phone] PCP - General Family Medicine 01/23/24
--- OUTSIDE RECORDS SUMMARY | 2024-04-30 19:18 | XMS_ITS | Encounter Summary ---
Author Organization [employer] Address [address] [facility] [address]t [place] [address] Care Team Providers Care Head Of Talent Management Name Role Phone Sandra Henson MD Primary Care Provider [phone] Encounter Details Date Type Department Care Team ([facility] st Contact Info) Description 01/26/2024 Orders Only [facility] [address] [place] [address] Sandra Henson MD [address] [place] [address] Social History Tobacco Use Types Packs/Day Years [...] Description 05/08/2024 3:30 PM EST Office Visit [facility] [address] [place] [phone] Sandra Henson MD [address] [place] [phone] documented as of this encounter Visit Diagnoses Not on filedocumented in this encounter Additional Health Concerns Assessment Noted Time PHQ-9 Depression Total Score: 0 01/23/20 2:50 PM EDT documented as of this encounter Care Teams Head Of Talent Management Relationship Specialty Start Date End Date Sandra Henson MD [address] [place] [address] [phone] PCP - General Family Medicine 01/23/24 documented as of this encounter
--- OUTSIDE RECORDS SUMMARY | 2024-04-30 19:18 | XMS_ITS | Clinical Summary ---
Author Organization [facility] Address [address] [address] Care Team Providers Care Timber Surveyor Name Role Phone Marlys Minor DO Primary Care Provider Unava ilable Medications aspirin (ST KRYSTAL) 81 MG EC tablet Take 81 mg by mouth 1 (one) time each day Active cholecalciferol (VITAMIN D-3) 25 MCG (1000 UT) capsule Take 1,000 Units by mouth 1 (one) time each day 06/07/2019 Active omeprazole (PriLOSEC) [address] capsule Take 20 mg by mouth 1 (one) time each day Do not crush or chew. Active Active Problems Problem Noted Date Diagnosed Date Onychomycosis 11/12/2021 Chronic kidney disease stage 3 12/23/2010 Family History Medical History Relation Comments Dementia Father Cancer Mother kidney Diabetes Mother Kidney disease Mother Kidney CA Heart disease Sibling Brother-CO x4 Relation Status Comments Father Mother Sibling Social History Tobacco Use Types Packs/Day Years Used Date Smoking Tobacco: Never Alcohol Use Standard Drinks/Week Comments No 0 (1 standard drink = 0.6 oz pur e alcohol) Sex and Gender Information Value Date Recorded Sex Assigned at Not on file Legal Sex Male 5:19 PM EST Gender Identity Not on file Sexual Orientation Not on file Last Filed Vital Signs Vital Sign Reading Time Taken Comments Blood Pressure 112/78 06/07/2019 12:00 PM EST Pulse 60 06/07/2019 12:00 PM EST Temperature - - Respiratory Rate - - Oxygen Saturation - - Inhaled Oxygen Concentration - - Weight 79.5 kg (175 lb 3.2 oz) 06/07/2019 12:00 PM EST Height 167.6 cm (5' 6 ) 06/07/2019 12:00 PM EST Body Mass Index 28.28 06/07/2019 12:00 PM EST Plan of Treatment Health Maintenance Due Date Last Done Comments Pneumococcal Vaccine: Pediat rics (0 to 5 Years) and At-Risk Patients (6 to 64 Years) (1 of 2 - PCV) 1970 Hepatitis B Vaccine (1 of 3 - 19+ 3-dose series) 05/26 Colorectal Cancer Screening: Annual FOBT 2013 Colorectal Cancer Screening: Colonoscopy 2013 Colorectal Cancer Screening: Sigmoidoscopy 2013 Influenza Vaccine (#1) 2023 12/17/[address] [place] [address] [place] Care Teams Timber Surveyor Relationship Specialty Start Date End Date Marlys Minor DO PCP - General Family Medicine 06/30/21
--- OUTSIDE RECORDS SUMMARY | 2024-04-30 19:18 | XMS_ITS | Encounter Summary ---
Author Organization [employer] Address [address] [facility] [address] [place] [address] Care Team Providers Care Sales Audit Clerk Name Role Phone Sandra Henson MD Primary Care Provider [phone] Reason for Visit * Reason Onset Date Comments Med Refill 01/27/2024 Encounter Details Date Type Department Care Team (Late st Contact Info) Description 01/27/2024 Refill [facility] MEDICINE [address] [place] [address] Marlys Minor DO [address] [place], [place] [phone] Gastroesophageal reflux disease, unspecified whether esophagitis present Social History Tobacco Use Types Packs/Day Years [...] Description 05/08/2024 3:30 PM EST Office Visit [facility] MEDICINE [address] [place] [phone] Sandra Henson MD [address] [place] [phone] documented as of this encounter Visit Diagnoses Diagnosis Gastroesophageal reflux disease, unspecified whether esophagitis present documented in this encounter Additional Health Concerns Assessment Noted Time PHQ-9 Depression Total Score: 0 01/23/20 2:50 PM EDT documented as of this encounter Care Teams Sales Audit Clerk Relationship Specialty Start Date End Date Sandra Henson MD [address] [place] [phone] PCP - General Family Medicine 01/23/24 documented as of this encounter
== END 2024-04-30 16:00 | disposition home or self-care (01) ==
PROVIDERS: PCP Family Medicine; Visit Provider Surgery
DX: Z12.11 Encounter for screening for malignant neoplasm of colon (principal)
CPT/HCPCS: 99203

== ENCOUNTER 2024-06-04 09:22 | Outpatient (AMB) | payer BC, SELFPAY ==
[2024-06-04 09:27] VITALS: BMI 27.9
--- NOTE | 2024-06-04 09:27 | A.OFFVIS_ITS ---
Vital Signs 06/04/24 09:27 Height 5 ft 6 in Weight 173 lb BMI 27.9 Intake Visit Reasons: OV: Left hand stiffness of finger joint Intake Note: Tom is a 58 year old jordanian speaking right hand dominant male who presents today for follow up visit of his left hand pain and CTS. State he continues to have CTS but he is more concern due to noticing a lump at base of h is ring finger. States about 2 weeks he noticed a lump on his balderas aspect of his hand and has not been able to make a full close fist. States this is causing pain and weakness. Biometric Fingerprinting Technician Required: Yes Biometric Fingerprinting Technician Name: Edie BAEZA/PATRIZIA Allergies No Known Allergies Allergy (Verified 06/04/24 09:33) HPI HPI OV: Left hand stiffness of finger joint: Details: Tom is a 58 year old jordanian speaking right hand dominant male who presents today for follow up visit of his left hand pain and CTS. State he continues to have CTS but he is more concern due to noticing a lump at base of his ring finger. States about 2 weeks he noticed a lump on his balderas aspect of his hand and has not been able to make a full close fist. States this is causing pain and weakness. Patient does state that his left ring finger does sometimes lock in a flexed position. Of note, the patient has been seen in office for car carpal tunnel syndrome previously, and the patient states he is still uninterested in having any surgery at this time, as he is having ocular surgery in July can not afford to take more time off of work after this. [facility] Medical History (Updated 06/04/24 @ 10:02 by VIPUL Coates) Bilateral hand numbness Elevated BP without diagnosis of hypertension Moderate anxiety Mild cognitive impairment Hyperlipemia Severe episode of recurrent major depressive disorder, with psychotic features Pre-diabetes Chronic gastroesophageal reflux disease Stage 3 chronic kidney disease History of stroke Colon cancer screening No known health problems Surgical History H/O colonoscopy (~2012) Social History Alcohol intake: former Patient Tobacco Use Status: Former Tobacco user Current occupational status: employed 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 Neuro: Normal sensation of the tips of all digits of the left hand at this time Vascular: Cap refill brisk Pain: Tenderness to palpation noted of the A1 danica of the left ring finger Pain associated with locking and catching of the left ring finger in a flexed position ROM: There is visible and palpable locking and catching of the left ring finger in a flexed position Patient is able to flex and extend all other digits of the left hand fully and without difficulty Skin: No lacerations or abrasions. General: No ecchymosis, erythema, or evidence of infection. Psych: Appears grossly normal Affect normal Attitude cooperative Office Procedures AMB Tendon Injection Tendon Injection Details: Left ring finger trigger injection [id number] Tendon Sheath Injection All charges added?: Procedure code (CPT) selection complete Assessment & Plan Assessment & Plan (1) Trigger finger, left ring finger: Code(s): M65.342 - Trigger finger, left ring finger Category: Medical Plan 1. Trigger finger, left ring finger Patient is educated about this condition Patient was educated about the treatment options available Patient would like to proceed with steroid injection at this time The risks and benefits of a steroid injection including but not limited to risk of damage to blood vessels, nerves, tendons, infection, skin bleaching, failure to improve symptoms, increased pain, and possible need for further injections or other intervention were discussed with the patient and the patient wishes to proceed with the steroid injection. Once consent was obtained, I aseptically prepped the area over the A1 danica of the flexor tendon sheath of the left ring finger. I then injected the flexor tendon sheath with a combination of 1 mL of dexamethasone (4mg/ml), and 1% lidocaine. The patient tolerated the procedure well with no complications. If the patient continues to have locking and catching 4-6 weeks following this injection, they may call to schedule appointment to discuss alternative treatment options Follow-up prn Coding Level of Care Code Est Pt Level 3 (88528) Diagnoses Trigger finger, left ring finger M65.342 CPT Codes Tendon Injection - Tendon Injection 1: [id number] Tendon Sheath Injection ([id number])
--- OUTSIDE RECORDS SUMMARY | 2024-06-04 10:12 | XMS_ITS | Clinical Summary ---
Author Organization [employer] Address [address] [facility] 7[address] [place] [address] Care Team Providers Care Cleat Thrower Name Role Phone Sandra Henson MD Primary Care Provider Allergies No known active allergies Medications * [...] without diagnosis of hypertension Assessment & Plan (05/08/2024 5:09 PM EST): -Goal BP < 140/90 per JNC-8 and < 130/80 per ACC/AHA guideline (Treatment threshold >=140/90) -Continue working on lifestyle modifications -Continue self-monitoring BP. 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 He reported mild symptoms; therefore, opted out surgery. - continue wearing wrist splint - judicious use of NSAID Assessment & Plan (01/29/2024 3:46 PM EDT): Reports bilateral hand numbness that occurs mainly at night. Suspect likely carpel tunnel. - last NCT/EMG in 2019 was normal - will repeat test -prescribed Naproxen for PRN pain and also prescribed a brace to use at night. History of stroke 01/23/2024 Assessment & Plan (05/16/2024 5:09 AM EST): Reports hx of stroke 2 years ago. -referral placed to Neurology 01/23/24 Assessment & Plan (01/23/2024 9:30 PM EDT): [...] verbalized he was not himself. 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 Has support from younger daughter who moved to [place] and has other daughter within the area [...] Anxiety and hx of MH services including [facility] Psychotherapy psychopharmacology, He also has Hx of trauma in childhood. Tom presents for a BE after having a recent episode where he verbalized he was not himself. 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 Has support from younger daughter who moved to [place] and has other daughter within the area [...] intervention , [facility] as needed, and Patient to reach out to [facility] as needed. Hyperlipidemia 01/21/2023 01/21/2023 Assessment & Plan (05/08/2024 5:25 PM EST): - Last lipid profile in Jan 2024 - Prescribed atorvastatin but pt has not been taking it and is hesitant to start medication (pt friend is more hesitant to this medication) - Continue lifestyle modification - Pt friend requested referral to RD Assessment & Plan (01/23/2024 9:32 PM EDT): Per records hx of hyperlipidemia. HDL 48, TOTCHOL 205. -ordered FLP 01/23/24 Mild cognitive impairment 01/21/20232022 Assessment & Plan (01/29/2024 3:35 PM EDT): Last previous PCP note as following: Likely MCI per neurology -TSH, RPR, B12, folate nml NOV 2017 -CT head unremarkable JAN 2018 -MMSE with neurology JAN 2018 -advised contact [facility] if sx worsen -f/u w/ neurology prn -Will refer back to neurology and clarify whether patient had a stroke or not Assessment & Plan (01/21/2023 11:52 AM EDT): Likely MCI per neurology -TSH, RPR, B12, folate nml NOV 2017 -CT head unremarkable JAN 2018 -MMSE 28/ with neurology JAN 2018 -advised contact [facility] if sx worsen -f/u w/ neurology prn Pre-diabetes 06/25/2015 01/21/2023 Assessment & Plan (05/16/2024 5:08 AM EST): Strong FHx of diabetes Continue working on lifestyle modifications Assessment & Plan (01/23/2024 9:31 PM EDT): Strong FHx of diabetes. A1C per records on 06/24/21 was 5.9. -ordered A1C 01/23/24 Chronic gastroesophageal reflux disease 06/25/19 16 01/21/2023 Stage 3 chronic kidney disease 12/23/2010 1 Assessment & Plan (05/16/2024 5:08 AM EST): - encourage adequate fluid intake - periodic lab - prescribed ARB for kidney protection; patient declined Assessment & Plan (01/23/2024 9:27 PM EDT): Not on any medication, denies any medical hx. -ordered albumin to further evaluate. 01/23/24 Resolved Problems Problem Noted Date Diagnosed Date Resolved Date BMI 30.0-30.9,adult 01/21/2023 01/29/20 Onychomycosis 11/12/2021 01/21/2023 01/21/2023 Overweight (BMI 25.0-29.9) 06/25/2015 01/21/2023 1 Encounters Date Type Department Care Team Description 05/25/2024 Telephone [facility] MEDICINE [address] [place] [phone] Sandra Henson MD PCP clearance 05/18/2024 Telephone [facility] MEDICINE [address] [place] [address] NUTRITION APPT REQUEST 05/08/2024 3:30 PM EST Office Visit [facility] MEDICINE [address] [place] [address] [phone] Sandra Henson MD Elevated BP without diagnosis of hypertension (Primary Dx); Hyperlipidemia, unspecified hyperlipidemia type; Bilateral carpal tunnel syndrome; Stage 3a chronic kidney disease ([facility]/HCC); Pre-diabetes; History of stroke; Stiffness of finger joint of left hand 05/08/2024 Travel 05/07/2024 Telephone [facility] MEDICINE [address] [place] [address] Sandra Henson MD Pre Op 05/07/2024 Telephone [facility] MEDICINE [address] [place] [address] Lauren Deleon MA CHART PREP from Last 3 Months Immunizations Name Administration Dates Next Due Hep B, Adolescent or Pediatric 05/05/1996,1996 Hep B, adult 02/22/2022,,08/20/2020,2020,07/15/2009 Influenza injectable quadriv alent IIV4 with preservative 12/20/2014 Influenza injectable quadriv alent preservative free 02/22/2022,01/08/2021,01/17/2020,2019 Influenza, IIV3, injectable 01/28/2011 Influenza, Split (incl. jose fied surface antigen) 12/05/2012 Influenza, seasonal, injecta ble, preservative free 01/23/2024 Pneumococcal Conjugate PCV 20 05/08/2024 Tdap 07/11/2020,11/16/2011 Family History Medical History Relation [...] Sign Reading Time Taken Comments Blood Pressure 134/78 05/08/2024 3:37 PM EST Pulse 98 05/08/2024 3:37 PM EST Temperature 36.2 ??C (97.1 ??F) 05/08/2024 3:37 PM ES T Respiratory Rate 15 05/08/2024 3:37 PM EST Oxygen Saturation 98% 02/13/2024 10:58 AM EST Inhaled Oxygen Concentration - - Weight 79.4 kg (175 lb) 05/08/2024 3:37 PM EST Height 167.6 cm (5' 6 ) 03/29/2023 2:04 PM EST Body Mass Index 28.25 03/29/2023 2:04 PM EST Plan of Treatment Upcoming Encounters Date Type Department Care Team (Late st Contact Info) Description 06/25/2024 1:15 PM EDT Office Visit [facility] MEDICINE [address] [place] [address] Sandra Henson MD [address] [place], [place] [phone] Health Maintenance Due Date Last Done Comments [...] A1C 01/23/2025 024, 06/24/2021, 04/11/2019 Tobacco Screening 05/08/2025 05/08/2024 Lipid Panel 01/23/2029 01/24/2024, 06/24/2021 DTaP/Tdap/Td Vaccines (3 - Td or Tdap) 07/11/2030 07/11/2020, 11/16/2011 RSV Patients and Patients Aged 60 years or older (1 - 1-dose 75+ series) 2039 HIV Screening Completed 06/24/2021, 0406/2020, 04/11/2019 Hepatitis C Screening Completed 06/24/2021 , 07/05/2020, 04/11/2019 Hepatitis B Vaccines Completed 02/22/2022, 02/04/2021, 08/20/2020, Additional history exists Influenza Vaccine Completed 01/23/2024, , 01/08/2021, Additional history exists Pneumococcal Vaccine: 50+ Years Completed 05/08/2024 HIB Vaccines Aged Out No longer eligi [...] 10:25 AM EDT) Triglycerides 179(H) <150 mg/dL [facility] Comment:Desirable Triglyceri de: less than 150 mg/dLBorderline High Triglyceride 150-199 mg/dLHigh Triglyceride: 200-499 mg/dLVery High Triglyceride: greater than or equal to 5OO mg/dL Cholesterol 208(H) <200 mg/dL [facility] Comment:Desirable Cholestero l: less than 200 mg/dLBorderline High Cholesterol: 200-239 mg/dLHigh Cholesterol: greater than 239 mg/dL LDL Cholesterol Calculated 128(H) <100 mg/dL [facility] Comment:Desirable LDL: less than 100 mg/dLNear Optimal/Above Optimal LDL: 110- 129 mg/dLBorderline High LDL: 130-159 mg/dLHigh LDL: 160-189 mg/dLVery High LDL: greater than or equal to 190 mg/dL HDL Cholesterol 45 >40 mg/dL [facility] Comment:Desirable HDL: great er than 40 mg/dL Note: This HDL assay may give artificially low results in patients with liver disease. Blood 01/24/2024 10:2 5 AM EDT 01/24/2024 11:04 AM EDT Sandra Henson MD LAB BLOOD ORDERABLES Final Resul t Performing Organization Address [facility] Co de Phone Number [facility] [address] [place] [phone] * Hemoglobin A1c (01/24/2024 10:25 AM EDT) Hemoglobin A1c 6.0 <6.0 % [facility] Comment:Hemoglobin A1C Refer ence Range Adults: 4.8 - 6.0 % Non diabetic: < 6.0 % Goal: < 7.0 %Additional Action Suggested: > 8.0 %Note: Hemoglobin A1c results are invalid for patients with abnormal amounts of HbF. Blood transfusions may impact the HbA1c concentration in the patient sample. Estimated Average Glucose 126 mg/dL [facility] Comment:eAG = Estimated ave rage glucose which is %A1C expressed asaverage glucose, using the formula of the [id number] Glucose study (ADAG), Diabetes Care, Vol.31,#8,2007 Blood Venous blood specimen / Unknown 01/24/2024 10:25 AM EDT 01/24/2024 11:04 AM EDT Sandra Henson MD LAB BLOOD ORDERABLES Final Resul t Performing Organization Address [facility] Co de Phone Number [facility] [address] [place] [phone] * HEPATITIS C AB W/REFL TO [...] a test for HCV RNA (test code 94013) is suggested. ?? For additional information please refer to http://[employer].InnoPad/faq/HWS08i5 (This link is being provided for informational/ educational purposes only.) ?? 06/24/2021 8:50 AM EDT Marlys Minor DO HISTORICAL/NON ORDERABLE LAB S Final Result Performing Organization Address [facility] Phone Number [facility] [address] [place] [address], * HIV 1/2 ANTIGEN/ANTIBODY,FOURTH GENERATION W/RFL (06/24/2021 8:50 AM EDT) [facility] HIV-1/2 ANTIGEN AND ANTIBODIES, 4TH GENERATION W/ REFLEX NON-REACT OTIS NON-REACT OTIS [facility] Comment: HIV-1 antigen and HIV-1/HIV-2 [...] ? For additional information please refer to http://[employer].InnoPad/faq/LUA135 (This link is being provided for informational/ educational purposes only.) ? The performance of this assay has not been clinically validated in patients less than 2 years old. ?? 06/24/2021 8:50 AM EDT Marlys Minor DO LAB BLOOD ORDERABLES Final R esult Performing Organization Address [facility] de Phone Number [facility] [address] [place] [address], * Hm Colonoscopy (01/03/2013 10:43 AM EDT) Historical Provider HEALTH MAINTENANCE Final Result from Last 3 Months or Most Recently Relevant to Health Maintenance Insurance [employer] Care Teams Cleat Thrower Relationship Specialty Start Date End Date Sandra Henson MD [address] [place] [phone] PCP - General Family Medicine 01/23/24
--- OUTSIDE RECORDS SUMMARY | 2024-06-04 10:12 | XMS_ITS | Encounter Summary ---
Author Organization [employer] Address [address] [facility] 7 [place] [address] Care Team Providers Care Construction Worker Name Role Phone Sandra Henson MD Primary Care Provider [phone] Reason for Referral * Consultation (Routine) - Authorized Specialty Diagnoses / Procedures Referred By Judit avila Referred To Contact Orthopaedic Surgery Diagnoses Stiffness of finger joint of left hand Sandra Henson MD [address] [place] [address] Phone: tel: fax: [facility] [place] Orthopedics [address] [place] [address] Phone: tel: Referral ID Status Reason Start Date Expiration Date Visits Requested Visits Authorized [id number] Authorized Specialty Services Required 05/16/2024 05/16/2025 1 1 * Consultation (Routine) - Closed Specialty Diagnoses / Procedures Referred By Judit avila Referred To Contact Nutrition Diagnoses Hyperlipidemia, unspecified hyperlipidemia type Sandra Henson MD [address] [place] [address] Phone: tel: fax: Referral ID Status Reason Start Date Expiration Date V isits Requested Visits Authorized [id number] Closed Consult and Treat 05/16/2024 05/16/2025 1 1 Encounter Details Date Type Department Care Team (Latest Contact Info) Description 05/08/2024 3:30 PM EST Office Visit [facility] MEDICINE [address] [place] [address] Sandra Henson MD [address] [place] [address] Elevated BP without diagnosis of hypertension (Primary Dx); Hyperlipidemia, unspecified hyperlipidemia type; Bilateral carpal tunnel syndrome; Stage 3a chronic kidney disease (CMS/HCC); Pre-diabetes; History of stroke; Stiffness of finger joint of left hand Social History Tobacco Use Types Packs/Day Years [...] AM EDT documented as of this encounter Last Filed Vital Signs Vital Sign Reading Time Taken Comments Blood Pressure 134/78 05/08/2024 3:37 PM EST Pulse 98 05/08/2024 3:37 PM EST Temperature 36.2 ??C (97.1 ??F) 05/08/2024 3:37 PM ES T Respiratory Rate 15 05/08/2024 3:37 PM EST Oxygen Saturation - - Inhaled Oxygen Concentration - - Weight 79.4 kg (175 lb) 05/08/2024 3:37 PM EST Height - - Body Mass Index 28.25 03/29/2023 2:04 PM EST documented in this encounter Progress Notes * Sandra Henson MD - 05/08/2024 3:30 PM EST Subjective Tom Berumen is a 58 y.o. male who has depression, mild cognitive impairment, hyperlipidemia, GERD, CKD stage III and obesity, and patient presents for RV of BP/CTS. Background: Patient Active Problem List Diagnosis Severe episode of recurrent major depressive disorder, with psychotic features (CMS/HCC) Pre-diabetes Chronic gastroesophageal reflux disease Hyperlipidemia Mild cognitive impairment Stage 3 chronic kidney disease (CMS/HCC) Moderate anxiety Elevated BP without diagnosis of hypertension Colon cancer screening Carpal tunnel syndrome History of stroke Our last encounter was 01/23/2024. He reported he has had a colonoscopy, but it had been a long time and he could not remember when it was. Had not been taking any medications. Pt reported bilateral hand pain and numbness, that primarily affected his first 3 fingers. Mostly occurring at night and disrupting pt's sleep. Pt reported he had a stroke about 2 years ago and wanted referral to see a Neurologist. Therefore he was having cognitive impairment deficits. Pt had been taking 5 mg and his BP is controlled. Interval history: Pt had a conduction test 02/14/24 which showed moderate to severe median neuropathy bilateral. Pt was seen by orthopedist on 02/20/24. Pt will consider surgery but not at this time. Today: Pt arrived to visit with his female friend to translate for him. Pt reports he has not been taking his BP medication. Pt notes in July he will have pterygium surgery and will take a time off from work. Therefore, he does not want to have carpal tunnel release surgery. Pt also reports having pain and stiffness on his left fingers to where his hand will feel numb but could not recall timeframe. He would like to try steroid injection, if it allows him to have hand function for a while. Pt hasn???t been taking his atorvastatin because he was afraid of the side effects on his kidneys. Pt denies taking Aspirin also because he is cautious about the effects on his kidneys. Pt drinks a liter of water a day. Both he and his friend state that they do not want to take medications if they can improve by diet or exercise. They agree to see a garden center manager. Pt agreed to Pneoumania shot Review of Systems Constitutional: Negative for activity change, appetite change and fever. Respiratory: Negative for shortness of breath. Cardiovascular: Negative for chest pain. Objective Vitals: 05/08/24 1537 BP: 134/78 Pulse: 98 Resp: 15 Temp: 97.1 ??F (36.2 ??C) TempSrc: Temporal Weight: 175 lb (79.4 kg) Physical Exam Constitutional: General: He is not in acute distress. Appearance: Normal appearance. He is not ill-appearing. HENT: Head: Normocephalic and atraumatic. Mouth/Throat: Mouth: Mucous membranes are moist. Eyes: Extraocular Movements: Extraocular movements intact. Pupils: Pupils are equal, round, and reactive to light. Cardiovascular: Rate and Rhythm: Normal rate and regular rhythm. Heart sounds: No murmur heard. Pulmonary: Effort: Pulmonary effort is normal. No respiratory distress. Breath sounds: Normal breath sounds. No wheezing or rhonchi. Skin: General: Skin is warm. Neurological: Mental Status: He is alert. Mental status is at baseline. Psychiatric: Mood and Affect: Mood normal. Results: Lab Results Component Value Date NA 141 01/24/2024 K 4.2 01/24/2024 CL 108 01/24/2024 CO2 28 01/24/2024 BUN 20 (H) 01/24/2024 CREATININE 1.29 01/24/2024 CRCLCALCPH 55.9 07/05/2020 EGFR 57 01/24/2024 GLUCOSE 98 01/24/2024 TOTALBILIRUB 1.0 01/24/2024 AST 24 01/24/2024 ALT 22 01/24/2024 TOTPROTEIN 7.1 01/24/2024 ALB 4.2 01/24/2024 ALP 64 01/24/2024 Lab Results Component Value Date TRIG 179 (H) 01/24/2024 CHOL 208 (H) 01/24/2024 LDLCHOLCAL 128 (H) 01/24/2024 HDL 45 01/24/2024 Lab Results Component Value Date HGBA1C 6.0 01/24/2024 Lab Results Component Value Date WBC 5.1 01/24/2024 HGB 16.1 01/24/2024 HCT 49.1 01/24/2024 PLT 211 01/24/2024 MCV 87.7 01/24/2024 The 10-year ASCVD risk score (Stacey CASTILLO, et al., 2019) is: 9.6% Values used to calculate the score: Age: 58 years Sex: Male Is Non- : No Diabetic: No Tobacco smoker: No Systolic Blood Pressure: 134 mmHg Is BP treated: No HDL Cholesterol: 45 mg/dL Total Cholesterol: 208 mg/dL Screening and Health Care Maintenance: PHQ-2/9 Score: Patient Health Questionnaire-9 Score: 0 (01/23/2024 2:50 PM) Patient Health Questionnaire-2 Score: 0 (01/23/2024 2:50 PM) Thoughts that you would be better off or hurting yourself in some way: Not at all (01/23/2024 2:50 PM) BRYAN-7 Score: BRYAN-7 Total Score: 0 (05/08/2024 3:36 PM) Health Maintenance Due Topic Date Due Zoster Vaccines (1 of 2) Never done Colorectal Cancer Screening 01/03/2023 COVID-19 Vaccine ( season) 2023 Assessment/Plan Problem List Items Addressed This Visit Pre-diabetes Strong FHx of diabetes Continue working on lifestyle modifications Hyperlipidemia - Last lipid profile in Jan 2024 - Prescribed atorvastatin but pt has not been taking it and is hesitant to start medication (pt friend is more hesitant to this medication) - Continue lifestyle modification - Pt friend requested referral to RD Relevant Orders Referral to Nutrition Therapy Stage 3 chronic kidney disease (CMS/HCC) - encourage adequate fluid intake - periodic lab - prescribed ARB for kidney protection; patient declined Elevated BP without diagnosis of hypertension - Primary -Goal BP < 140/90 per JNC-8 and < 130/80 per ACC/AHA guideline (Treatment threshold >=140/90) -Continue working on lifestyle modifications -Continue self-monitoring BP. -Home BP is normal range -Previously prescribed olmensartan but pt has not been taking it - Will continue managing without this medication at this time Carpal tunnel syndrome - NCT/EMG on 02/14/24 moderate to severe median nerve neuropathy and mild to moderate bilateral ulnar nerve neuropathy - evaluated by [facility] orthopedist, last seen on 02/20/24. He reported mild symptoms; therefore, opted out surgery. - continue wearing wrist splint - judicious use of NSAID History of stroke Reports hx of stroke 2 years ago. -referral placed to Neurology 01/23/24 Other Visit Diagnoses Stiffness of finger joint of left hand - likely Dupuytren's or trigger finger. Possibly neuroma. - refer to ortho. Relevant Orders Referral to Orthopaedic Surgery No Known Allergies Current Outpatient Medications Medication Instructions acetaminophen (Tylenol 8 Hour) 650 MG ER tablet 1 tablet, Oral, 3 times daily atorvastatin (LIPITOR) 20 mg, Oral, Daily Blood Pressure Monitor [facility] Check BP daily cholecalciferol (Vitamin D-3) 50 MCG (1999) capsule 1 tablet, Oral, Nightly cyclobenzaprine (FLEXERIL) 10 mg, Oral, 3 times daily lidocaine (Lidoderm) 5 % patch APPLY 1 PATCH TOPICALLY TO SKIN, LEAVE ON FOR 12 HOURS AND OFF FOR 12 HOURS DIRECTED naproxen (NAPROSYN) 500 mg, Oral, 2 times daily PRN, Take with food. Do not take everyday for > 2 weeks olmesartan (BENICAR) 5 mg, Oral, Daily omeprazole (PRILOSEC) 20 mg, Oral, Daily before breakfast Follow-up: 3 months or sooner if any problem arises. Scribe Attestation: Marlys Bledsoe, am serving as a scribe to document services personally performed by Sandra Henson MD, based on the patient's response to questions by provider and provides statements to me. documented in this encounter Miscellaneous Notes * Assessment & Plan Note - Sandra Henson MD - 05/16/2024 5:09 AM ESTAssociated Problem(s): History of stroke Reports hx of stroke 2 years ago. -referral placed to Neurology 01/23/24 * Assessment & Plan Note - Sandra Henson MD - 05/16/2024 5:08 AM ESTAssociated Problem(s): Pre-diabetes Strong FHx of diabetes Continue working on lifestyle modifications * Assessment & Plan Note - Sandra Henson MD - 05/16/2024 5:08 AM ESTAssociated Problem(s): Stage 3 chronic kidney disease (CMS/HCC) - encourage adequate fluid intake - periodic lab - prescribed ARB for kidney protection; patient declined * Assessment & Plan Note - Sandra Henson MD - 05/16/2024 5:06 AM ESTAssociated Problem(s): Carpal tunnel syndrome - NCT/EMG on 02/14/24 moderate to severe median nerve neuropathy and mild to moderate bilateral ulnar nerve neuropathy - evaluated by [facility] orthopedist, last seen on 02/20/24. He reported mild symptoms; therefore, opted out surgery. - continue wearing wrist splint - judicious use of NSAID * Assessment & Plan Note - Marlys Davison MA - 05/08/2024 5:12 PM ESTAssociated Problem(s): Hyperlipidemia - Last lipid profile in Jan 2024 - Prescribed atorvastatin but pt has not been taking it and is hesitant to start medication (pt friend is more hesitant to this medication) - Continue lifestyle modification - Pt friend requested referral to RD * Assessment & Plan Note - Marlys Davison MA - 05/08/2024 5:09 PM ESTAssociated Problem(s): Elevated BP without diagnosis of hypertension -Goal BP < 140/90 per JNC-8 and < 130/80 per ACC/AHA guideline (Treatment threshold >=140/90) -Continue working on lifestyle modifications -Continue self-monitoring BP. -Home BP is normal range -Previously prescribed olmensartan but pt has not been taking it - Will continue managing without this medication at this time documented in this encounter Plan of Treatment Upcoming Encounters Date Type Department Care Team (Late st Contact Info) Description 06/25/2024 1:15 PM EDT Office Visit [facility] MEDICINE [address] [place] [address] Sandra Henson MD [address] [place] [address] Scheduled Referrals Name Type Priority Associated Diagnoses Orde r Schedule Referral to Nutrition Therapy Outpatient Referral Routine Hyperlipidemia, unspecified hyperlipidemia type Expected: 05/16/2024 (Approximate), Expires: 05/08/2025 Referral to Orthopaedic Surgery Outpatient Referral Routine Stiffness of finger joint of left hand Expected: 05/16/2024 (Approximate), Expires: 05/16/2025 documented as of this encounter Visit Diagnoses Diagnosis Elevated BP without diagnosis of hypertension- Primary Hyperlipidemia, unspecified hyperlipidemia type Bilateral carpal tunnel syndrome Carpal tunnel syndrome Stage 3a chronic kidney disease (CMS/HCC) Pre-diabetes Other abnormal glucose History of stroke Transient ischemic attack (TIA), and cerebral infarction without residual deficits Stiffness of finger joint of left hand documented in this encounter Additional Health Concerns Assessment Noted Time PHQ-9 Depression Total Score: 0 01/23/20 2:50 PM EDT documented as of this encounter Care Teams Construction Worker Relationship Specialty Start Date End Date Sandra Henson MD [address] [place] [address] PCP - General Family Medicine 01/23/24 documented as of this encounter
--- OUTSIDE RECORDS SUMMARY | 2024-06-04 10:12 | XMS_ITS | Clinical Summary ---
Author Organization [facility] Facility Address [address] [address] Care Team Providers Care Maintenance Shop Welder Name Role Phone Marlys Minor DO Primary [...] disease Mother Kidney CA Heart disease Sibling Brother-[place] x4 Relation Status Comments Father Mother Sibling [...] Years) (1 of 2 - PCV) 1970 Colorectal Cancer Screening: Annual FOBT 2013 Colorectal Cancer Screening: Colonoscopy 2013 Colorectal Cancer Screening: Sigmoidoscopy 2013 Influenza Vaccine (#1) 2023 12/17/2014 Hepatitis B Vaccine Aged Out No longe r eligible based on patient's age to complete this topic [place] Care Teams Maintenance Shop Welder Relationship Specialty Start Date End Date Marlys Minor DO PCP - General Family Medicine 06/30/21
--- OUTSIDE RECORDS SUMMARY | 2024-06-04 10:12 | XMS_ITS | Encounter Summary ---
Author Organization [employer] Address [address] [facility] 7 [place] [address] Care Team Providers Care Staff Development Educator Name Role Phone Sandra Henson MD Primary Care Provider [phone] Reason for Visit * Reason Onset Date Comments PCP clearance 05/25/2024 Encounter Details Date Type Department Care Team (Late st Contact Info) Description 05/25/2024 Telephone [facility] MEDICINE [address] [place] [address] Sandra Henson MD [address] [place], [place] [phone] PCP clearance Social History Tobacco Use Types Packs/Day Years [...] AM EDT documented as of this encounter Miscellaneous Notes * Telephone Encounter - Chantale Oliva RN - 05/28/2024 10:05 AM EST Returned call to Nancy at [facility] to inquire details about colonoscopy (below). Call disconnected. Called back and left message with Lydia asking for callback. Nancy called back, detailsfor surgery below. Heating Fixture Tender asked [facility] to call back with date of surgery, Nancy verbalized understanding. Date: not yet scheduled Surgery: colonoscopy Anesthesia: MAC Labs: BMP, CBC, anything else per provider's discretion EKG: yes Last office note: pre-op clearance note Surgeon's name: Dr. Drew Howell Surgeon office #: [phone] Surgeon fax #: [phone] Facility name: [facility] Contact name: Nancy * Telephone Encounter - Chantale Oliva RN - 05/25/2024 11:08 AM EST Telephone call returned to Nancy at [facility]. Pt not scheduled for colonoscopy yet however [facility] is requesting pt be cleared given that he has had history of a stroke. Heating Fixture Tender asked if anything specific needs to be done such as EKG or labs, Nancy stated yes, its general clearance. Will send to PCP to approve both preop for both procedures and then task to notify [facility] and ask the preop questions to put in appt notes. * Telephone Encounter - rIene Loo - 05/25/2024 10:36 AM EST Tc from Nancy with [facility] requesting clearance from PCP as pt needs to get a colonoscopy. [facility] ( General Surgery ) documented in this encounter Plan of Treatment Upcoming Encounters Date Type Department Care Team (Late st Contact Info) Description 06/25/2024 1:15 PM EDT Office Visit [facility] MEDICINE [address] [place] [address] Sandra Henson MD [address] [place] [phone] documented as of this encounter Visit Diagnoses Not on filedocumented in this encounter Additional Health Concerns Assessment Noted Time PHQ-9 Depression Total Score: 0 01/23/20 2:50 PM EDT documented as of this encounter Care Teams Staff Development Educator Relationship Specialty Start Date End Date Sandra Henson MD [address] [place] [address] PCP - General Family Medicine 01/23/24 documented as of this encounter
--- OUTSIDE RECORDS SUMMARY | 2024-06-04 10:12 | XMS_ITS | Encounter Summary ---
Author Organization [employer] Address [address] [facility] 7 [place] [address] Care Team Providers Care Radio Dispatcher Name Role Phone Sandra Henson MD Primary Care Provider [phone] Reason for Visit * Reason Onset Date Comments Pre Op 05/07/2024 Encounter Details Date Type Department Care Team (Late st Contact Info) Description 05/07/2024 Telephone [facility] MEDICINE [address] [place] [address] Sandra Henson MD [address] [place], [place] [phone] Pre Op Social History Tobacco Use Types Packs/Day Years [...] encounter Miscellaneous Notes * Telephone Encounter - Kodak Lanza - 05/09/2024 9:55 AM EST Pre-op scheduled for 06/[address] Henson . Facility and patient notified * Telephone Encounter - César Meraz - 05/07/2024 3:34 PM EST Date of Surgery: 07/10/24 Surgical procedure being done: [facility] Type of anesthesia: MAC Lab needed: No EKG: No Surgeon's name: Bernard gloria Facility name: [facility] Surgeon's office number: [phone] Surgeon's office fax number: [phone] Contact name (person you spoke with): Rena Last office note from surgeon requested: No Send Message to Vangie Hollingsworth and Kodak Lanza If any questions Contact Rena at [phone] documented in this encounter Plan of Treatment Upcoming Encounters Date Type Department Care Team (Late st Contact Info) Description 06/25/2024 1:15 PM EDT Office Visit [facility] MEDICINE [address] [place] [address] Sandra Henson MD [address] [place] [address] documented as of this encounter Visit Diagnoses Not on filedocumented in this encounter Additional Health Concerns Assessment Noted Time PHQ-9 Depression Total Score: 0 01/23/20 2:50 PM EDT documented as of this encounter Care Teams Radio Dispatcher Relationship Specialty Start Date End Date Sandra Henson MD [address] [place] [address] PCP - General Family Medicine 01/23/24 documented as of this encounter
--- OUTSIDE RECORDS SUMMARY | 2024-06-04 10:12 | XMS_ITS | Encounter Summary ---
Author Organization [employer] Address [address] [facility] [address] [facility] [address] 7[address] [place] [address] Care Team Providers Care Shirt Ironer Name Role Phone Sandra Henson MD Primary Care Provider [phone] Reason for Visit * Reason Onset Date Comments CHART PREP 05/07/2024 Encounter Details Date Type Department Care Team (Late st Contact Info) Description 05/07/2024 Telephone [facility] MEDICINE [address] [place] [address] Lauren Deleon MA CHART PREP Social History Tobacco Use Types Packs/Day Years [...] encounter Miscellaneous Notes * Telephone Encounter - Lauren Deleon MA - 05/07/2024 9:46 AM EST ..Chart Prep Labs: not done Images: not applicable Vaccines due: Covid Due and Shingles in pharmacy Due Referrals: Completed Screenings: Colonoscopy Overdue care gaps: BRYAN-7 documented in this encounter Plan of Treatment Upcoming Encounters Date Type Department Care Team (Late st Contact Info) Description 06/25/2024 1:15 PM EDT Office Visit [facility] MEDICINE [address] [place] [phone] Sandra Henson MD [address] [place] [phone] documented as of this encounter Visit Diagnoses Not on filedocumented in this encounter Additional Health Concerns Assessment Noted Time PHQ-9 Depression Total Score: 0 01/23/20 2:50 PM EDT documented as of this encounter Care Teams Shirt Ironer Relationship Specialty Start Date End Date Sandra Henson MD [address] [place] [address] PCP - General Family Medicine 01/23/24 documented as of this encounter
--- OUTSIDE RECORDS SUMMARY | 2024-06-04 10:12 | XMS_ITS | Encounter Summary ---
Author Organization [employer] Address [address] [facility] 7t [place] [address] Care Team Providers Care Caterer'S Aide Name Role Phone Sandra Henson MD Primary Care Provider [phone] Encounter Details Date Type Department Care Team ([facility] st Contact Info) Description 02/28/2024 Orders Only [facility] MEDICINE [address] [place] [address] Sandra Henson MD [address] [place] [address] Social History Tobacco Use Types Packs/Day Years [...] Description 06/25/2024 1:15 PM EDT Office Visit [facility] MEDICINE [address] [place] [address] Sandra Henson MD [address] [place] [address] documented as of this encounter Visit Diagnoses Not on filedocumented in this encounter Additional Health Concerns Assessment Noted Time PHQ-9 Depression Total Score: 0 01/23/20 2:50 PM EDT documented as of this encounter Care Teams Caterer'S Aide Relationship Specialty Start Date End Date Sandra Henson MD [address] [place] [address] PCP - General Family Medicine 01/23/24 documented as of this encounter
--- OUTSIDE RECORDS SUMMARY | 2024-06-04 10:12 | XMS_ITS | Encounter Summary ---
Author Organization [employer] Address [address] [facility] 7t [place] [address] Care Team Providers Care Vp Packaging Name Role Phone Sandra Henson MD Primary Care Provider [phone] Reason for Visit * Reason Onset Date Comments NUTRITION APPT REQUEST 05/18/2024 Encounter Details Date Type Department Care Team ([facility] st Contact Info) Description 05/18/2024 Telephone [facility] MEDICINE [address] [place], [place] [phone] Susi Triana, JOSEFA [address] [place] [address] NUTRITION APPT REQUEST Social History Tobacco Use Types Packs/Day Years [...] encounter Miscellaneous Notes * Telephone Encounter - Denise Riley - 05/18/2024 10:15 AM EST Called PT to schedule an appt for Nutrition, NA\LVM documented in this encounter Plan of Treatment Upcoming Encounters Date Type Department Care Team (Late st Contact Info) Description 06/25/2024 1:15 PM EDT Office Visit [facility] [address] [place] [address] Sandra Henson MD [address] [place] [address] documented as of this encounter Visit Diagnoses Not on filedocumented in this encounter Additional Health Concerns Assessment Noted Time PHQ-9 Depression Total Score: 0 01/23/20 2:50 PM EDT documented as of this encounter Care Teams Vp Packaging Relationship Specialty Start Date End Date Sandra Henson MD [address] [place] [address] PCP - General Family Medicine 01/23/24 documented as of this encounter
--- OUTSIDE RECORDS SUMMARY | 2024-06-04 10:12 | XMS_ITS | Encounter Summary ---
Author Organization [employer] Address [address] [facility] 7t [place] [address] Care Team Providers Care Six Sigma Black Belt Engineer Name Role Phone Sandra Henson MD Primary Care Provider [phone] Encounter Details Date Type Department Care Team (Latest Contact Info) Description 05/08/2024 Travel Social History Tobacco Use Types Packs/Day Years [...] Description 06/25/2024 1:15 PM EDT Office Visit [facility] [address] [place] [phone] Sandra Henson MD [address] [place] [address] documented as of this encounter Visit Diagnoses Not on filedocumented in this encounter Additional Health Concerns Assessment Noted Time PHQ-9 Depression Total Score: 0 01/23/20 2:50 PM EDT documented as of this encounter Care Teams Six Sigma Black Belt Engineer Relationship Specialty Start Date End Date Sandra Henson MD [address] [place] [id number] PCP - General Family Medicine 01/23/24 documented as of this encounter
--- OUTSIDE RECORDS SUMMARY | 2024-06-04 10:12 | XMS_ITS | Encounter Summary ---
Author Organization [employer] Address [address] [facility] 7t [place] [address] Care Team Providers Care Forensic Chemist Name Role Phone Sandra Henson MD Primary Care Provider [phone] Reason for Visit * Reason Onset Date Comments Med Refill 01/27/2024 Encounter Details Date Type Department Care Team (Late st Contact Info) Description 01/27/2024 Refill [facility] [address] [place], [place] [phone] Marlys Minor DO [address] [place], [place] [phone] Gastroesophageal reflux disease, unspecified whether esophagitis present [...] Description 06/25/2024 1:15 PM EDT Office Visit [facility] [address] [place] [phone] Sandra Henson MD [address] [place] [phone] documented as of this encounter Visit Diagnoses Diagnosis Gastroesophageal reflux disease, unspecified whether esophagitis present documented in this encounter Additional Health Concerns Assessment Noted Time PHQ-9 Depression Total Score: 0 01/23/20 2:50 PM EDT documented as of this encounter Care Teams Forensic Chemist Relationship Specialty Start Date End Date Sandra Henson MD [address] [place] [id number] PCP - General Family Medicine 01/23/24 documented as of this encounter
--- OUTSIDE RECORDS SUMMARY | 2024-06-04 10:12 | XMS_ITS | Encounter Summary ---
Author Organization [employer] Address [address] [facility] 7t [place] [address] Care Team Providers Care Crankshaft Straightener Name Role Phone Sandra Henson MD Primary Care Provider [phone] Encounter Details Date Type Department Care Team ([facility] st Contact Info) Description 01/26/2024 Orders Only [facility] [address] [place] [address] Sandra Henson MD [address] [place] [address] Social History Tobacco Use Types Packs/Day Years [...] Description 06/25/2024 1:15 PM EDT Office Visit [facility] [address] [place] [address] Sandra Henson MD [address] [place] [address] documented as of this encounter Visit Diagnoses Not on filedocumented in this encounter Additional Health Concerns Assessment Noted Time PHQ-9 Depression Total Score: 0 01/23/20 2:50 PM EDT documented as of this encounter Care Teams Crankshaft Straightener Relationship Specialty Start Date End Date Sandra Henson MD [address] [place] [address] PCP - General Family Medicine 01/23/24 documented as of this encounter
--- OUTSIDE RECORDS SUMMARY | 2024-06-04 10:12 | XMS_ITS | Encounter Summary ---
Author Organization [employer] Address [address] [facility] [address] 7[address] [place] [address] Care Team Providers Care Funeral Director And Embalmer Name Role Phone Mily Marlys Primary Care Provider [phone] Sandra Henson MD Primary Care Provider [phone] Encounter Details Date Type Department Care Team (Late st Contact Info) Description 07/14/2023 Orders Only [facility] [address] [place] [address] Provider, MD Lou Social History Tobacco Use [...] Description 06/25/2024 1:15 PM EDT Office Visit [facility] [address] [place] [phone] Sandra Henson MD [address] [place] [phone] documented as of this encounter Procedures Procedure [...] documented as of this encounter Care Teams Funeral Director And Embalmer Relationship Specialty Start Date End Date Marlys Minor DO [address] [place] [address] [phone] PCP - General Family Medicine 10/19/13 01/22/24 Sandra Henson MD [address] [place] [address] [phone] PCP - General Family Medicine 01/23/24 documented as of this encounter
== END 2024-06-04 09:55 | disposition home or self-care (01) ==
PROVIDERS: PCP Family Medicine
DX: M65.342 Trigger finger, left ring finger (principal)
CPT/HCPCS: 20550; 99213

== ENCOUNTER → 2024-06-04 09:22 | Outpatient (BNVA) | payer BC, SELFPAY | PROVIDERS: PCP Family Medicine | DX: M65.342 Trigger finger, left ring finger (principal) | CPT/HCPCS: 20550; J1100; J2003 ==

== ENCOUNTER 2024-09-18 06:08 | Day surgery (SDC) | payer BC, SELFPAY ==
--- OUTSIDE RECORDS SUMMARY | 2024-08-28 09:08 | XMS_ITS | Clinical Summary ---
Author Organization [facility] Facility Address [address] [address] Care Team Providers Care Hot Blaster Name Role Phone Marlys Minor DO Primary [...] disease Mother Kidney CA Heart disease Sibling Brother-[place] x4 Relation Status Comments Father Mother Sibling [...] Due Date Last Done Comments Pneumococcal Vaccine: 50+ Ye ars (1 of 2 - PCV) 1983 Colorectal Cancer Screening: Annual FOBT 2013 Colorectal Cancer Screening: Colonoscopy 2013 Colorectal Cancer Screening: Sigmoidoscopy 2013 Influenza Vaccine (Season Ended) 2024 12/18/19 15 Hepatitis B Vaccine Aged Out No longe r eligible based on patient's age to complete this topic Insurance r [address] [place] [address] [address] [place] [address] [place] [address] Medicaid [place] Care Teams Hot Blaster Relationship Specialty Start Date End Date Marlys Minor DO PCP - General Family Medicine 06/30/21
[2024-09-03 13:17] VITALS: BP 129/67; PULSE 63; RESP 16; O2SAT 97; BMI 28.3
[2024-09-18 06:43] VITALS: BMI 27.5
[2024-09-18 06:58] VITALS: BP 130/83; PULSE 63; TEMP 36.3; O2SAT 97
[2024-09-18] MEDS: Lactated Ringers 1,000 ML 100 ML IVCONT (07:02)
--- NOTE | 2024-09-18 07:17 | MHC.SHP ---
Pre-Procedural Eval Section A - 24 Hr Update-Section A only Date of Service: 09/18/24 Section B - Complete if H&P > 30 days Chief Complaint: screening Details of Present Illness: For screening colonoscopy today denies GI complaints Relevant Family History (Specify if Yes): No Relevant Social History: None Present Medications: see Short Stay Collaborative assessment Medical History: Significant History (Chronic back, hip pain; history of stroke) Allergies: Allergies Allergy/AdvReac Type Severity Reaction Status Date / Time No Known Allergies Allergy Verified 09/18/24 06:55 Review of Systems Sugical H&P ROS: Negative: Constitution, Cardiovascular, Respiratory and Neurological Exam Surgical H&P Exam: Normal: Heart, Normal: Lungs, Normal: Abdomen and Normal: Skin Plan Diagnosis/Plan: Unchanged I have reviewed the history and physical and performed a pertinent physical examination on my patient. No changes have occurred unless specified. Time Spent With Patient Time: Total time managing care of this patient today ____ minutes.
--- NOTE | 2024-09-18 07:30 | HO.ANESPROP2 ---
Documented by User: Edyta Ramos NP 09/17/24 09:30 HPI - Anesthesia Eval Consult details Narrative: 59yo M for Colonoscopy with possible Polypectomy Medically optimized per PCP ON LICENSE OF [facility] Active Problems Active Problems: All Active Problems Trigger finger, left ring finger (Acute) Bilateral carpal tunnel syndrome (Acute) Sacroiliac joint pain (Acute) Left hip pain (Acute) Bilateral leg weakness (Acute) Spondylosis of lumbar region without myelopathy or radiculopathy (Acute) Exposure to blood-borne pathogen (Acute) Colon cancer screening (Acute) Past Medical History Medical History CTS (carpal tunnel syndrome) GERD (gastroesophageal reflux disease) Bilateral hand numbness Elevated BP without diagnosis of hypertension Moderate anxiety Mild cognitive impairment Hyperlipemia Severe episode of recurrent major depressive disorder, with psychotic features Pre-diabetes Chronic gastroesophageal reflux disease Stage 3 chronic kidney disease History of stroke Colon cancer screening Surgical History Surgical History History of surgery on left wrist H/O colonoscopy (~2012) Social History Social History (Updated 09/03/24 @ 13:45 by Kimber Gore RN) Household Members: Significant Other Housing: House Are you a primary nurse behavioral health care to a significant other at home: No Do you presently have visiting nurse or other home services: No Alcohol intake: former Patient Tobacco Use Status: Former Tobacco user Tobacco use type: Cigarette Use of substances other than those prescribed or required for medical reasons: No Have you been hit, kicked, punched, or otherwise hurt by someone within the past year? 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 Allergies Allergy/AdvReac Type Severity Reaction Status Date / Time No Known Allergies Allergy Verified 09/18/24 06:55 Home Medications ?Medication ?Instructions ?Recorded ?Confirmed ?Last Taken ?Type acetaminophen 650 mg tablet 650 mg PO QID PRN Pain 04/20/24 09/18/24 Unknown History lidocaine 5 % topical patch 1 patch topical DAILY 04/20/24 09/18/24 Unknown History naproxen 500 mg tablet 500 mg PO BID 04/20/24 09/18/2407/03/25 History omeprazole 20 mg capsule,delayed 20 mg PO DAILY 04/20/24 09/18/24 Unknown History release Exam Height,Weight and Vital Signs: Height 5 ft 6 in Weight 79.5 kg Last Vital Signs Pulse 63 09/03/24 13:17 Resp 16 09/03/24 13:17 BP 129/67 09/03/24 13:17 Pulse Ox 97 09/03/24 13:17 O2 Del Method Room Air 09/03/24 13:17 Assessment and Plan Assessment Anesthesia Assessment: Chart Reviewed Documented by User: Rosie Watters DO 09/18/24 07:50 HPI - Anesthesia Eval Consult details Narrative: 59yo M for Colonoscopy with possible Polypectomy Medically optimized per PCP [facility] of [facility] without residual weaknesses [facility] Past Medical History Medical History CTS (carpal tunnel syndrome) GERD (gastroesophageal reflux disease) Bilateral hand numbness Elevated BP without diagnosis of hypertension Moderate anxiety Mild cognitive impairment Hyperlipemia Severe episode of recurrent major depressive disorder, with psychotic features Pre-diabetes Chronic gastroesophageal reflux disease Stage 3 chronic kidney disease History of stroke Colon cancer screening Family History Family history of problems with anesthesia: No Surgical History Surgical History History of surgery on left wrist H/O colonoscopy (~2012) History of Problems with Anesthesia: No Social History Social History (Updated 09/03/24 @ 13:45 by Kimber Gore RN) Household Members: Significant Other Housing: House Are you a primary nurse behavioral health care to a significant other at home: No Do you presently have visiting nurse or other home services: No Alcohol intake: former Patient Tobacco Use Status: Former Tobacco user Tobacco use type: Cigarette Use of substances other than those prescribed or required for medical reasons: No Have you been hit, kicked, punched, or otherwise hurt by someone within the past year? 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 Allergies Allergy/AdvReac Type Severity Reaction Status Date / Time No Known Allergies Allergy Verified 09/18/24 06:55 Home Medications ?Medication ?Instructions ?Recorded ?Confirmed ?Last Taken ?Type acetaminophen 650 mg tablet 650 mg PO QID PRN Pain 04/20/24 09/18/24 Unknown History lidocaine 5 % topical patch 1 patch topical DAILY 04/20/24 09/18/24 Unknown History naproxen 500 mg tablet 500 mg PO BID 04/20/24 09/18/24 07/03/24 History omeprazole 20 mg capsule,delayed 20 mg PO DAILY 04/20/24 09/18/24 Unknown History release Exam Exam Date and Time: 09/18/24 0730 Height,Weight and Vital Signs: Height 5 ft 6 in Weight 79.5 kg Last Vital Signs Pulse 63 09/03/24 13:17 Resp 16 09/03/24 13:17 BP 129/67 09/03/24 13:17 Pulse Ox 97 09/03/24 13:17 O2 Del Method Room Air 09/03/24 13:17 Vital Signs Pulse Rate 63 09/03/24 13:17 Respiratory Rate 16 09/03/24 13:17 Blood Pressure 129/67 09/03/24 13:17 Pulse Oximetry 97 09/03/24 13:17 Oxygen Delivery Method Room Air 09/03/24 13:17 Temperature 97.4 F 09/18/24 06:58 Pulse Rate 63 09/18/24 06:58 Respiratory Rate 16 09/03/24 13:17 Blood Pressure 130/83 09/18/24 06:58 Pulse Oximetry 97 09/18/24 06:58 Oxygen Delivery Method Room Air 09/18/24 06:58 Airway Mallampati Class: II TM Dist: >3cm Neck ROM: Full Loose/Missing/Broken Teeth: No (patient denies any loose or broken teeth) Heart: S1S2 Lungs: CTAB Assessment and Plan Assessment Anesthesia Assessment: Anesthesia Plan Discussed and Chart Reviewed Final Anesthetic Review Family History of Problems with Anesthesia: No History of Problems with Anesthesia: No NPO: Yes ASA Class: II Final Preanesthetic Review: No Changes in Pt Med Stat, Meds/Allgs Chart Reviewed, Consent Obtained/Reviewed (rail equipment operator at bedside for translation) and Anes Risks/Benef Reviewed Patient Risk: Low Procedure Risk: Low Anesthetic Plan Anesthetic Plan: MAC: and Agree w/ Assess. and Plan Disposition: Standard PACU
--- NOTE | 2024-09-18 07:58 | P.OP_ITS ---
Operative Note Operative Note Date of Service: 09/18/24 Narrative: Preop diagnosis: Colon cancer screening Postop diagnosis: Poor bowel prep Procedure: Colonoscopy Surgeon: Drew Howell MD The patient is a 59-year-old male here for follow-up colonoscopy for screening. He understood the technique of the planned procedure as well as the risks, benefits, and alternatives. The patient was brought to the operating room and placed in left lateral decu bitus position under monitored anesthesia care. A surgical time-out was done. A full digital rectal exam was done and this did not reveal any significant anal lesions. The tip of the Olympus colonoscope was gently introduced through the anal orifice advanced with insufflation all the way to the cecum. The cecum was intubated. The cecum was identified by visualization of the ileocecal valve as well as the appendiceal orifice. The cecal mucosa was unremarkable. The scope was gradually withdrawn with careful examination of the entire colonic mucosa being done with scope withdrawal. The patient had poor bowel prep. There was note of solid formed stools scattered throughout the entire colon. It was unlikely that any large lesion by missed. The rectum was reached and there were no lesions seen. The anal canal was unremarkable. The scope was then withdrawn completely with desufflation The patient tolerated the procedure well. There were no immediate complications. In view of his poor bowel prep, I would recommend repeating his colonoscopy next year.
[2024-09-18 08:03] VITALS: BP 105/63; PULSE 64; RESP 16; TEMP 36.1; O2SAT 94
[2024-09-18 08:15] VITALS: BP 102/61; PULSE 58; RESP 16; O2SAT 94
[2024-09-18 08:30] VITALS: BP 120/73; PULSE 62; RESP 16; O2SAT 96
[2024-09-18 08:45] VITALS: BP 124/73; PULSE 58; RESP 16; TEMP 36.1; O2SAT 97
== END 2024-09-18 09:25 | disposition home or self-care (01) ==
PROVIDERS: PCP Family Medicine; Visit Provider Surgery
PROC: 0DBE8ZZ Excision of Large Intestine, Via Natural or Artificial Opening Endoscopic (ICD-10-PCS; CPT 45378; principal; 2024-09-18 07:30)
DX: Z12.11 Encounter for screening for malignant neoplasm of colon (principal); Z86.73 Personal history of transient ischemic attack (TIA), and cerebral infarction without residual deficits; N18.31 Chronic kidney disease, stage 3a; R73.03 Prediabetes; E78.5 Hyperlipidemia, unspecified; K21.9 Gastro-esophageal reflux disease without esophagitis; G89.29 Other chronic pain; M54.9 Dorsalgia, unspecified; M25.559 Pain in unspecified hip; F32.A Depression, unspecified; Z79.1 Long term (current) use of non-steroidal anti-inflammatories (NSAID); Z79.899 Other long term (current) drug therapy; Z87.891 Personal history of nicotine dependence
CPT/HCPCS: 45378; J2003; J2704

== ENCOUNTER → 2024-09-18 06:08 | Outpatient (BNV) | payer BC, SELFPAY | PROVIDERS: PCP Family Medicine; Visit Provider Surgery | DX: Z12.11 Encounter for screening for malignant neoplasm of colon (principal) | CPT/HCPCS: 45378 ==

== ENCOUNTER 2024-10-01 09:23 | Outpatient (AMB) | payer BC, SELFPAY ==
--- NOTE | 2024-10-01 09:25 | MHC.OFFVIS ---
Vital Signs 10/01/24 09:31 Height 5 ft 6 in Weight 171 lb 2 oz BMI 27.6 BP 125/69 Blood Pressure Location Lt brachial Position Sitting Pulse 67 Intake Visit Reasons: s/p colonoscopy Intake Note: Patient is seen in office for post op assessment post colonoscopy. Pt c/o: denies any concerns surgery:09/18/24 Nurse Practitioner Manager Required: Yes Nurse Practitioner Manager Language: Split Leather Mosser Services: Nurse Practitioner Manager Present Nurse Practitioner Manager Name: Deborah WARNER Information Interpreted: non-clinical & clinical Floor Installer: Floor Installer Present Accompanied by: Family/Other Allergies No Known Allergies Allergy (Verified 09/18/24 06:55) HPI HPI s/p colonoscopy: Details: wash tub machine operator used for evaluation. patient returning for follow up after colonoscopy on 09/18. Patient doing well PFSH Medical History CTS (carpal tunnel syndrome) GERD (gastroesophageal reflux disease) Bilateral hand numbness Elevated BP without diagnosis of hypertension Moderate anxiety Mild cognitive impairment Hyperlipemia Severe episode of recurrent major depressive disorder, with psychotic features Pre-diabetes Chronic gastroesophageal reflux disease Stage 3 chronic kidney disease History of stroke Colon cancer screening Surgical History History of surgery on left wrist H/O colonoscopy (09/18/24) Social History Household Members: Significant Other Housing: House Are you a primary caretaker grounds to a significant other at home: No Do you presently have visiting nurse or other home services: No 75 years or older and lives alone: No Alcohol intake: former Patient Tobacco Use Status: Former Tobacco user Tobacco use type: Cigarette Use of substances other than those prescribed or required for medical reasons: No Current occupational status: employed 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 Patient doing well, no complaints. We discussed the results of his colonoscopy. Per Dr Howell recommendation, patient will require repeat colonoscopy next year due to suboptimal prep. There was stool throughout the colon and unable to visualize much. When asked about the colon prep, the patient appears to have misunderstood how to complete the prep. He took the two laxatives the morning of rather than the day before which is likely why the prep was so poor. We will ensure that he has a print out with instructions for completing the prep for his next colonoscopy in 1 year. He can follow up as needed sooner. Coding Level of Care Code Est Pt Level 2 (32805) Diagnoses Colon cancer screening Z12.11
[2024-10-01 09:31] VITALS: BP 125/69; PULSE 67; BMI 27.6
--- OUTSIDE RECORDS SUMMARY | 2024-10-01 09:42 | XMS_ITS | Clinical Summary ---
Author Organization [facility] Facility Address [address] [address] Care Team Providers Care Family Service Caseworker Name Role Phone Marlys Minor DO Primary [...] disease Mother Kidney CA Heart disease Sibling Brother-[place] x4 Relation Status Comments Father Mother Sibling [...] [place] [address] Medicaid [place] Care Teams Family Service Caseworker Relationship Specialty Start Date End Date Marlys Minor DO PCP - General Family Medicine 06/30/21
== END 2024-10-01 09:47 | disposition home or self-care (01) ==
LOC: HO.HGS 09:24
PROVIDERS: PCP Family Medicine
DX: Z12.11 Encounter for screening for malignant neoplasm of colon (principal)
CPT/HCPCS: 99212

== ENCOUNTER 2025-03-12 11:55 | Emergency (ER) | payer BC, SELFPAY ==
--- NOTE | ~2025-03-12 | XR_ITS ---
EXAMINATION: XR CHEST CLINICAL INFORMATION: Chest pain COMPARISON: Previous chest x-ray November 2017 TECHNIQUE: 2 views of the chest were obtained. FINDINGS: No significant abnormality is noted involving the heart, lungs, mediastinum, bony thorax or soft tissues. Degenerative changes of the spine. XR/XR chest 2V IMPRESSION: No evidence for acute disease in the chest. Electronically signed by: Camilla Elizondo MD 03/12/2025 01:15 PM [facility] [place]
--- NOTE | 2025-03-12 11:57 | ECG_ITS ---
Test Reason : CHEST PAIN Blood Pressure : */* mmHG Vent. Rate : 65 BPM Atrial Rate : 65 BPM P-R Int : 158 ms QRS Dur : 78 ms QT Int : 384 ms P-R-T Axes : 61 82 39 degrees QTcB Int : 399 ms Normal sinus rhythm Normal ECG When compared with ECG of 21-May-2016 19:02, No significant change was found Referred By: Ba Lin Electronically Signed By: MARITA HODGE MD
[2025-03-12 12:42] VITALS: BP 143/67; PULSE 67; RESP 16; TEMP 36.8; O2SAT 97; BMI 27.5
--- NOTE | 2025-03-12 12:47 | ED.GENADULT ---
HPI - General Adult General Chief complaint: Chest Pain Stated complaint: chest pain, back pain History of Present Illness HPI narrative: patient left before completion of treatment by ED provider Related Data Home Medications ?Medication ?Instructions ?Recorded ?Confirmed acetaminophen 650 mg tablet 650 mg PO QID PRN Pain 04/20/24 09/18/24 lidocaine 5 % topical patch 1 patch topical DAILY 04/20/24 09/18/24 naproxen 500 mg tablet 500 mg PO BID 04/20/24 09/18/24 omeprazole 20 mg capsule,delayed 20 mg PO DAILY 04/20/24 09/18/24 release Allergies Allergy/AdvReac Type Severity Reaction Status Date / Time No Known Allergies Allergy Verified 03/12/25 12:47 PMFSH Past Medical History Medical History CTS (carpal tunnel syndrome) GERD (gastroesophageal reflux disease) Bilateral hand numbness Elevated BP without diagnosis of hypertension Moderate anxiety Mild cognitive impairment Hyperlipemia Severe episode of recurrent major depressive disorder, with psychotic features Pre-diabetes Chronic gastroesophageal reflux disease Stage 3 chronic kidney disease History of stroke Colon cancer screening Surgical History History of surgery on left wrist H/O colonoscopy (09/18/24) Social History Social History Household Members: Significant Other Housing: House Are you a primary skin care consultant to a significant other at home: No Do you presently have visiting nurse or other home services: No Alcohol intake: former Patient Tobacco Use Status: Former Tobacco user Tobacco use type: Cigarette Advance Directives: No Advance Directives Information Provided: No Do you have a plan to hurt others: No Plan Current occupational status: employed 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 Labs EKG x-ray UA ordered Medical Decision Making Lab Data 03/12/25 13:14 03/12/25 13:14 Labs: Lab Results 03/12/25 Range/Units 13:14 WBC 6.5 (4.8-10.8) X10*3/uL RBC 5.72 (4.60-5.80) X10*6/uL Hgb 16.7 (14.0-18.0) g/dl Hct 51.1 (42.0-52.0) % MCV 89.3 (80.0-98.0) fL MCH 29.2 (27.0-33.0) pg MCHC 32.7 (31.0-36.0) g/dl RDW 13.3 (11.0-16.0) % Plt Count 223 (160-400) X10*3/uL MPV 9.4 (9.4-12.4) fL Immature Gran % (Auto) 0.2 (0.0-0.4) % Neut % (Auto) 67.1 (45-73) % Lymph % (Auto) 17.8 L (20-40) % [place] % (Auto) 7.7 (2-11) % Eos % (Auto) 6.1 H (0-4) % Baso % (Auto) 1.1 (0-2) % Lymph # (Auto) 1.2 (1.2-4.9) X10*3/uL [place] # (Auto) 0.5 (0.1-1.2) X10*3/uL Eos # (Auto) 0.4 (0.0-0.4) X10*3/uL Baso # (Auto) 0.1 (0.0-0.2) X10*3/uL Abs Immat Gran (auto) 0.01 (0.00-0.03) X10*3/uL Absolute Neuts (auto) 4.4 (2.0-8.3) x10*3/uL Absolute Nucleated RBC 0.000 (0.0-0.012) X10*3/uL Nucleated RBC % (auto) 0.0 (0.0-0.2) /100WBC PT 11.3 (11.2-13.5) SEC INR 0.9 (0.9-1.1) APTT 29.1 (26.7-34.1) SEC Sodium 142 (135-145) mmol/L Potassium 5.6 H D (3.3-5.1) mmol/L Chloride 112 H (96-108) mmol/L Carbon Dioxide 27 (22-29) mmol/L Anion Gap 9 L (12-20) BUN 21 H (9-16) mg/dL Creatinine 1.37 (0.5-1.4) mg/dL Estim Creat Clear Calc 56.1 Estimated GFR 53 Random Glucose 96 (60-115) mg/dL Calcium 9.6 (8.4-10.2) mg/dL Total Bilirubin 0.5 (0.0-1.0) mg/dL AST 21 (5-37) U/L ALT 21 (0-40) U/L Alkaline Phosphatase 74 (39-117) U/L NT-Pro-B Natriuret Pep < 15.8 (<300) pg/mL Total Protein 7.0 (6.5-8.0) g/dL Albumin 4.1 (3.5-5.0) g/dL Lipase 36 (8-78) U/L Discharge Plan Discharge Clinical Impression: Chest pain Patient Disposition: Left W/O Completing Treatment Prescriptions: No Action acetaminophen 650 mg tablet 650 mg PO QID PRN (Reason: Pain) lidocaine 5 % adhesive patch,medicated 1 patch topical DAILY Rx Instructions: leave on most painful area for up to 12 hrs naproxen 500 mg tablet 500 mg PO BID omeprazole 20 mg capsule,delayed release(DR/EC) 20 mg PO DAILY Discharge Date/Time: 03/12/25 20:48
[2025-03-12 13:17] LABS: MANUAL DIFF FLAG NO
[2025-03-12 13:21] LABS: Hematocrit 51.1 % (42.0-52.0); Hemoglobin 16.7 g/dl (14.0-18.0); Imm Gran Abs Auto 0.01 X10*3/uL (0.00-0.03); Imm Gran Pct Auto 0.2 % (0.0-0.4); Lymphocytes Absolute Auto 1.2 X10*3/uL (1.2-4.9); Mean Corpuscular HGB Conc 32.7 g/dl (31.0-36.0); Mean Corpuscular Hemoglobin 29.2 pg (27.0-33.0); Mean Corpuscular Volume 89.3 fL (80.0-98.0); NRBC Abs Auto 0.000 X10*3/uL (0.0-0.012); NRBC Pct Auto 0.0 /100WBC (0.0-0.2); Platelet Count 223 X10*3/uL (160-400); Red Blood Count 5.72 X10*6/uL (4.60-5.80); White Blood Count 6.5 X10*3/uL (4.8-10.8)
[2025-03-12 13:31] LABS: INTERNATIONAL NORM RATIO 0.9 (0.9-1.1); Prothrombin Time 11.3 SEC (11.2-13.5)
[2025-03-12 13:34] LABS: Partial Thromboplastin Time 29.1 SEC (26.7-34.1)
[2025-03-12 13:40] LABS: Alanine Aminotransferase 21 U/L (0-40); Albumin Level 4.1 g/dL (3.5-5.0); Alkaline Phosphatase 74 U/L (39-117); Anion Gap 9 (12-20); Aspartate Amino Transferase 21 U/L (5-37); Blood Urea Nitrogen 21 mg/dL (9-16); Calcium 9.6 mg/dL (8.4-10.2); Carbon Dioxide 27 mmol/L (22-29); Chloride 112 mmol/L (96-108); Creatinine Clr Calc Pharmacy 56.1; Estimated Glomerular Filt Rate 53; Lipase 36 U/L (8-78); Potassium 5.6 mmol/L (3.3-5.1); Sodium 142 mmol/L (135-145); Total Protein 7.0 g/dL (6.5-8.0)
[2025-03-12 13:50] LABS: NT Pro B Type Natriuretic Pept < 15.8 pg/mL (<300)
--- NOTE | 2025-03-12 17:18 | MHC.EDTECH ---
called pt 4X and no response!
--- OUTSIDE RECORDS SUMMARY | 2025-03-12 23:27 | XMS_ITS | Clinical Summary ---
Author Organization [facility] Facility Address [address] [address] Care Team Providers Care Creative Writing English Professor Name Role Phone Marlys Minor DO Primary [...] disease Mother Kidney CA Heart disease Sibling Brother-[place] x4 Relation Status Comments Father Mother Sibling [...] Cancer Screening: Sigmoidoscopy 2013 Influenza Vaccine (#1) 2024 12/17/2014 Hepatitis B Vaccine Aged Out No longe r eligible based on patient's age to complete this topic Insurance r [address] [place] [address] Medicaid [place] Care Teams Creative Writing English Professor Relationship Specialty Start Date End Date Marlys Minor DO PCP - General Family Medicine 06/30/21
== END 2025-03-12 20:48 | disposition left against medical advice (07) ==
PROVIDERS: Physician Assistant; Emergency Provider Emergency Medicine; PCP Family Medicine
DX: R07.9 Chest pain, unspecified (principal); M54.9 Dorsalgia, unspecified; N18.30 Chronic kidney disease, stage 3 unspecified; Z87.891 Personal history of nicotine dependence
CPT/HCPCS: 36415; 71046; 80053; 83690; 83880; 85025; 85610; 85730; 93005; 99283

== ENCOUNTER → 2025-03-12 11:57 | Outpatient (BNV) | payer BC, SELFPAY | PROVIDERS: PCP Family Medicine; Visit Provider Internal Medicine Cardiovascular Disease | DX: R07.9 Chest pain, unspecified (principal) | CPT/HCPCS: 93010 ==

== ENCOUNTER → 2025-03-12 12:46 | Outpatient (BNV) | payer BC, SELFPAY | PROVIDERS: PCP Family Medicine; Visit Provider Radiology Diagnostic Radiology | DX: R07.9 Chest pain, unspecified (principal) | CPT/HCPCS: 71046 ==